=== PATIENT | male | born 1955 | race Caucasian/White ===

== ENCOUNTER 2016-05-31 10:21 | Outpatient (CLI) | payer MEDICARE, OTHER ==
[2015-10-19 12:30] VITALS: BP 128/65
--- NOTE | 2016-05-31 19:13 | Diagnostic Imaging Report ---
Report Submission Date: May 31, 2016 3:17:04 PM CDT Patient ~ Study Name: DAVION ROY) ~ Date: May 31, 2016 10:38:05 AM CDT ~ Modality Type: CR Gender: M ~ Description: CHEST : 53 ~ Institution: [facility] Physician: BETZAIDA FAULKNER ~ ~ ~ ~ HISTORY: ~61-year-old male with left chest wall pain after fall yesterday. COMPARISON: None available. TECHNIQUE: Three views of the left ribs were performed. IMPRESSION: 1. ~No evidence of fracture of the left ribs or clavicle. 2. ~Thoracolumbar dextroscoliosis. 3. ~Left acromioclavicular hypertrophy. 4. ~Surgical clips of the base of the neck suggestive of thyroidectomy. ~ Electronically signed on May 31, 2016 3:17:04 PM CDT by: Filiberto ESCALERA
== END 2016-05-31 10:22 ==
LOC: RAD 10:21
PROVIDERS: ATTEND Family Medicine
DX: R07.81 Pleurodynia (principal)
CPT/HCPCS: 71100

== ENCOUNTER 2016-08-25 20:32 | Emergency (ER) | payer MEDICARE, OTHER ==
[2016-08-25 21:05] VITALS: BP 104/55
--- NOTE | 2016-08-25 21:17 | ED Physician Documentation ---
General Adult - HISTORIAN Historian: patient, friend - [facility] Stated Complaint: bleeding from surgical site Chief Complaint: General Adult Additional Information: persistent bleeding from 1cm shaved biopsy by dermatologists this am Onset: days ago (6) Timing: still present Severity: mild - ROS CONST: no problems (has chronic liver problem w/ lo platelets - no anticoagulants) CVS/RESP: denies: chest pain, shortness of breath, cough GI/: denies: abdominal pain, problems urinating MS/SKIN/LYMPH: none NEURO/PSYCH: denies: headache, fainting, dizziness, difficulty with speech - PAST HX Past History: hypertension, other (ch hep b heavy etoh) Allergies/Adverse Reactions: Allergies Allergy/AdvReac Type Severity Reaction Status Date / Time valproic acid Allergy Severe Nausea/Vomi Unverified 08/25/16 21:05 ting ciprofloxacin [From Cipro] Allergy Intermediate Nausea/stomache Unverified 08/25 21:05 upset ciprofloxacin HCl Allergy Intermediate Nausea/stomache Unverified 08/25/16 21:05 [From Cipro] upset duloxetine Allergy Fatigue Unverified 08/25/16 21:05 aspirin AdvReac Intermediate Causes Verified 08/25/16 21:05 Internal Bleeding Home Medications: Ambulatory Orders Medication Instructions Recorded Cholecalciferol (Vitamin D3) 2,000 unit PO DAILY u2 11/25/14 [Vitamin D-3] Lysine HCl [L-Lysine] 1,000 mg PO DAILY u2 11/25/14 Propranolol HCl 20 mg PO DAILY u2 11/25/14 - SOCIAL HX Smoking History: non-smoker Alcohol Use: heavy (2 beer 1 bottle wine per day) Drug Use: none - FAMILY HX Family History: No - VITAL SIGNS Vital Signs: Vital Signs Temp Pulse Resp BP Pulse Ox 70 16 104/55 97 08/25/16 20:45 08/25/16 20:45 08/25/16 20:45 08/25/16 20:45 - REVIEWED ASSESSMENTS Nursing Assessment Reviewed: Yes Vitals Reviewed: Yes General Adult Physical Exam - PHYSICAL EXAM GENERAL APPEARANCE: mild distress NECK: normal inspection, thyroid normal RESPIRATORY: no resp distress, chest non-tender, breath sounds normal CVS: reg rate & rhythm, heart sounds normal ABDOMEN: soft, non-tender BACK: other (mid dorsal area the aforementioned shave biopsy by dermatologists this am-has bled slightly all day) EXTREMITIES: non-tender, normal range of motion NEURO: oriented X3, motor nml, sensation nml, mood/affect nml Discharge Clincal Impression: bleeding biopsy site mid dorsal area mitra, chronic hep B, ehtanol abuse poss cirrhosis Referrals: Mark Flowers MD [Primary Care Provider] - 2 Days Home Medications: Ambulatory Orders Cholecalciferol (Vitamin D3) [Vitamin D-3] 2,000 unit PO DAILY u2 11/25/14 Lysine HCl [L-Lysine] 1,000 mg PO DAILY u2 11/25/14 Propranolol HCl 20 mg PO DAILY u2 11/25/14 Condition: Good Decision to Admit: NO Decision Time: 21:17
== END 2016-08-25 21:15 | disposition home or self-care (01) ==
LOC: ED 20:32
DX: L76.22 Postprocedural hemorrhage of skin and subcutaneous tissue following other procedure (principal); K73.8 Other chronic hepatitis, not elsewhere classified; F10.10 Alcohol abuse, uncomplicated
CPT/HCPCS: 99283

== ENCOUNTER 2016-09-18 11:33 | Observation (INO) | payer MEDICARE, OTHER ==
[2016-09-18] MEDS ORDERED: ONDANSETRON HCL/PF 4 MG/ 2ML VIAL ONE (11:56)
[2016-09-18] MEDS ORDERED: 0.9 % SODIUM CHLORIDE 1,000 ML IV ONE (11:56)
[2016-09-18] MEDS ORDERED: ONDANSETRON HCL/PF 4 MG/ 2ML VIAL IM ONE (12:00)
[2016-09-18] MEDS ORDERED: 0.9 % SODIUM CHLORIDE 500 ML IV ONE (12:00)
[2016-09-18 12:24] LABS: BASOPHILS % 0.4 (0.0-1.5); MEAN CORPUSCULAR HEMOGLOBIN 34.6 pg (28.0-34.0); MEAN CORPUSCULAR VOLUME 90.4 fl (80.0-100.0); MONOCYTES % 13.3 % (0.0-11.0); NEUTROPHILS # 3.3 # k/uL (1.4-7.7); eGFR (African) > 60; eGFR (Non-African) > 60
[2016-09-18] MEDS ORDERED: POTASSIUM CHLORIDE 20 MEQ TABLET.ER PO ONE (12:52)
--- NOTE | 2016-09-18 12:59 | ED Physician Documentation ---
General Adult - HISTORIAN Historian: patient - HPI Stated Complaint: nausea Chief Complaint: General Adult Additional Information: just dont feel good abd upset nausea emesis diarrhea-normal color Onset: days ago (past 1-2 weeks) Timing: worse Severity: moderate Further Comments: yes (pt anxiety and depression due to partner in hosp at [place]) Last known Well Code/Unknown Code: Known (2-3 weeks or more) - ROS CONST: sweating, recent illness, weakness. denies: fever, weight loss EYES/ENT: denies: problems with vision CVS/RESP: none GI/: abdominal pain, vomiting, nausea, diarrhea (normal brown color ) MS/SKIN/LYMPH: none NEURO/PSYCH: dizziness, anxiety, depression. denies: headache, fainting, difficulty with speech - PAST HX Past History: hypertension ( esophageal varices-bled severly in past-req transfusions peptic ulcer disease djd chronic fatigue syndrome. on disability dt esoph varices) Surgeries/Procedures: other (skin cancer) Allergies/Adverse Reactions: Allergies Allergy/AdvReac Type Severity Reaction Status Date / Time valproic acid Allergy Severe Nausea/Vomi Unverified 09/18/16 11:57 ting ciprofloxacin [From Cipro] Allergy Intermediate Nausea/stomache Unverified 09/18 11:57 upset ciprofloxacin HCl Allergy Intermediate Nausea/stomache Unverified 09/18/16 11:57 [From Cipro] upset duloxetine Allergy Fatigue Unverified 09/18/16 11:57 aspirin AdvReac Intermediate Causes Verified 09/18/16 11:57 Internal Bleeding Home Medications: Ambulatory Orders Medication Instructions Recorded Cholecalciferol (Vitamin D3) 2,000 unit PO DAILY u2 11/25/14 [Vitamin D-3] Lysine HCl [L-Lysine] 1,000 mg PO DAILY u2 11/25/14 Propranolol HCl 20 mg PO DAILY u2 11/25/14 - SOCIAL HX Smoking History: non-smoker Alcohol Use: other (1-2 beer per day) Drug Use: none - FAMILY HX Family History: No - VITAL SIGNS Vital Signs: Vital Signs Temp Pulse Resp BP Pulse Ox 97.9 F 64 20 110/56 97 09/18/16 11:33 09/18/16 11:33 09/18/16 11:33 09/18/16 11:33 09/18/16 11:33 - REVIEWED ASSESSMENTS Nursing Assessment Reviewed: Yes Vitals Reviewed: Yes ED Results Lab/Radiology - Lab Results Lab Results: Lab Results 09/18/16 09/18/16 12:07 12:07 WBC 5.00 K/ul K/ul (4.00-12.00) RBC 3.90 M/ul M/ul (3.90-5.20) Hgb 13.5 g/dL g/dL (12.0-18.0) Hct 35.3 % L % (37.0-53.0) MCV 90.4 fl fl (80.0-100.0) MCH 34.6 pg H pg (28.0-34.0) MCHC 38.3 g/dL H g/dL (30.0-36.0) RDW 14.8 % H % (11.3-14.3) Plt Count 57 K/mm3 L K/mm3 (130-400) Neut % (Auto) 65.2 % % (39.0-79.0) Lymph % (Auto) 17.9 % % (16.0-50.0) Saline % (Auto) 13.3 % H % (0.0-11.0) Eos % (Auto) 2.0 % % (0.0-6.8) Baso % (Auto) 0.4 (0.0-1.5) Neut # (Auto) 3.3 # k/uL # k/uL (1.4-7.7) Lymph # (Auto) 0.9 # k/uL # k/uL (0.6-4.0) Saline # (Auto) 0.7 # k/uL # k/uL (0.0-0.9) Eos # (Auto) 0.1 # k/uL # k/uL (0.0-0.6) Baso # (Auto) 0.0 # k/uL # k/uL (0.0-0.5) Reactive Lymphs % 1.3 % % (0.0-5.0) Reactive Lymphs # 0.1 # k/uL # k/uL (0.0-0.8) Sodium 136 mmol/L mmol/L (136-145) Potassium 2.5 mmol/L L* mmol/L (3.5-5.0) Chloride 93 mmol/L L mmol/L (98-110) Carbon Dioxide 35 mmol/L H mmol/L (20-32) BUN 30 mg/dL H mg/dL (10-26) Creatinine 1.1 mg/dL mg/dL (0.4-1.5) Estimated Creat Clear 111 Est GFR ( Amer) > 60 (60 - ) Est GFR (Non-Af Amer) > 60 (60 - ) Glucose 170 mg/dL H mg/dL (70-99) Calcium 9.6 mg/dL mg/dL (8.5-10.5) Total Bilirubin 3.6 mg/dL H mg/dL (0.2-1.2) AST 47 U/L H U/L (0-41) ALT 24 U/L U/L (0-45) Alkaline Phosphatase 64 U/L U/L (46-116) Total Protein 7.3 g/dL g/dL (6.0-8.5) Albumin 4.0 g/dL g/dL (3.0-5.5) - Orders Orders: ED Orders Category Date Time Status IV Started NOW Care 09/18/16 12:01 Active CBC/PLATELET/DIFF Routine Lab 09/18/16 12:07 Completed CMP Routine Lab 09/18/16 12:07 Completed UA [URINALYSIS] Routine Lab 09/18/16 Ordered 0.9 % Sodium Chloride [Normal Saline] 1,000 ml Med 09/18/16 11:56 Discontinued IV .STK-MED 0.9 % Sodium Chloride [Normal Saline] 500 ml Med 09/18/16 12:00 Discontinued IV NOW Ondansetron HCl/Pf [Zofran 4 mg/2 ml] Med 09/18/16 11:56 Discontinued 4 mg .ROUTE .STK-MED ONE Ondansetron HCl/Pf [Zofran 4 mg/2 ml] Med 09/18/16 12:00 Discontinued 4 mg IM NOW ONE POTASSIUM CHLORIDE/NS @ 125 MLS/HR(1000ml) Med 09/18/16 13:00 Ordered Potassium Chloride 40 Meq/Ns [Potassium 40 Meq/Ns 1000 ml] 1,000 ml IV Q8H Potassium Chloride [Klor-Con M20] Med 09/18/16 12:52 Once 40 meq PO NOW ONE General Adult Physical Exam - PHYSICAL EXAM GENERAL APPEARANCE: moderate distress EENT: eye inspection normal NECK: normal inspection, thyroid normal, supple RESPIRATORY: no resp distress, chest non-tender, breath sounds normal CVS: reg rate & rhythm, heart sounds normal, occasional extrasystoles ABDOMEN: tenderness (slight generalized) BACK: normal inspection, no CVA tenderness, CVA tenderness (R) SKIN: warm/dry, normal color. No: cyanosis, diaphoresis, jaundice EXTREMITIES: non-tender, normal range of motion NEURO: oriented X3, motor nml, sensation nml Discharge Clincal Impression: hypokalemia, weakness nausea emesis diarrhea, dehydration, hyperglycemia Referrals: Mark Flowers MD [Primary Care Provider] - 2 Days Home Medications: Ambulatory Orders Cholecalciferol (Vitamin D3) [Vitamin D-3] 2,000 unit PO DAILY u2 11/25/14 Lysine HCl [L-Lysine] 1,000 mg PO DAILY u2 11/25/14 Propranolol HCl 20 mg PO DAILY u2 11/25/14 Comments: priyanka w/ pt/DR MACK - will admit for care Condition: Fair Disposition: ADMITTED INPATIENT Decision to Admit: [id number] Decision Time: 13:10
[2016-09-18] MEDS: POTASSIUM CHLORIDE 40 MEQ/NS 1,000 ML IV SCH ×2 (13:05→20:51)
[2016-09-18] MEDS ORDERED: POTASSIUM CHLORIDE 40 MEQ/20ML VIAL IV ONE (13:22)
[2016-09-18] MEDS ORDERED: SALINE FLUSH 10 ML DISP.SYRIN IVF ONE (13:43)
[2016-09-18] MEDS ORDERED: IPRATROPIUM BROMIDE NS SCH (14:28)
[2016-09-18] MEDS ORDERED: METOLAZONE 5 MG PO SCH (14:28)
[2016-09-18] MEDS ORDERED: DICYCLOMINE HCL 20 MG TABLET PO ONE ×2 (15:50→16:49)
[2016-09-18] MEDS: DICYCLOMINE HCL 10 MG PO SCH ×2 (15:59→19:25)
[2016-09-18] MEDS: POTASSIUM CHLORIDE 20 MEQ TABLET.ER PO SCH ×2 (16:00→19:26)
[2016-09-18] MEDS: PROPRANOLOL HCL 20 MG TABLET PO SCH (16:00)
[2016-09-18] MEDS: FINASTERIDE 5 MG TABLET PO SCH (16:01)
[2016-09-18 16:16] VITALS: BMI 35.1
[2016-09-18] MEDS: FUROSEMIDE 40 MG TABLET PO SCH (19:26)
[2016-09-18] MEDS: CHOLESTYRAMINE (WITH SUGAR) 4 GM PACKET PO SCH (20:50)
--- NOTE | 2016-09-18 20:58 | History and Physical Report ---
History of Present Illnes - History of Present Illness Reason for Visit: generalized weakness History of Present Illness: 61-year-old white male who comes in complaining of several problems. Patient had a month history of intermittent diarrhea. 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 Patient denies any hematachezia, melena or hematemesis. Patient has been having some cramping and nausea for approximately two weeks. Again the seem to be precipitated by stress. Patient is not had any hematemesis. On the morning of admission patient got up felt week was having a lot of muscle cramps and subsequently came to the ED for evaluation. In the ED patient was noted to be markedly hypokalemic. Patient was subsequently admitted to the hospital for further evaluation. There is some question about whether the patient was go to be able to keep potassium tablets down related to his nausea and vomiting. Over the last two month patient has been trying to eat healthy. However patient has been under a lot of stress related to relationship issues. Patient has felt hot does not had any fever that he is aware of. Did have some chills this morning. Patient stated he did have an endoscopy two month ago for recheck of esophageal varicosels. These were felt to be normal. - Past Medical History Cardiac: HTN Gastrointestinal: Other (esphageal varicoceles, hepatitis B with mild cirrhosis) Musculoskeletal: Osteoarthritis - Past Surgical History Past Surgical History: Other (excision of melenoma, parathyriodectomy) - Past Social History Smoke: No Alcohol: Rare Lives: Roommate Domestic Violence: Negative - Health Maintenance Health Maintenance: Cholesterol, Pneumococcal Vaccine Influenza Vaccine: Current for this Influenza Season Pneumonia Vaccine: Yes Resuscitation Status: Resusciation Status Resuscitation Status Full Code - Unable to Obtain History Unable to Obtain: No Review of Systems - Review of Systems Constitutional: Chills, Weakness. negative: Fever, Sweats Eyes: negative: pain, vision change, conjunctivae inflammation ENT: negative: Nose Pain, Nose Discharge, Nose Congestion Respiratory: negative: Cough, Shortness of Breath, Hemoptysis, Sputum, Wheezing Cardiovascular: Light Headedness. negative: Chest Pain, Palpitations, Orthopnea Gastrointestinal: Nausea, Vomiting, Abdominal Pain (cramping), Diarrhea. negative: Constipation, Melena, Hematochezia Genitourinary: negative: Dysuria, Frequency, Incontinence Musculoskeletal: Leg Pain. negative: Neck Pain Skin: negative: Rash Neurological: Weakness. negative: Numbness, Incoordination, Confusion - Medications/Allergies Allergies/Adverse Reactions: Allergies Allergy/AdvReac Type Severity Reaction Status Date / Time valproic acid Allergy Severe Nausea/Vomi Verified 09/18/16 14:04 ting ciprofloxacin [From Cipro] Allergy Intermediate Nausea/stomache Verified 14:04 upset ciprofloxacin HCl Allergy Intermediate Nausea/stomache Verified 09/18/16 14:04 [From Cipro] upset duloxetine Allergy Fatigue Verified 09/18/16 14:04 aspirin AdvReac Intermediate Causes Verified 09/18/16 11:57 Internal Bleeding Home Medications: Home Medications Amitriptyline HCl [Elavil] 10 mg PO HS PRN 09/18/16 Current Inpatient Medications: Current Inpatient Medications Cholecalciferol (Vitamin D-3) 2,000 unit PO DAILY [facility] Cholestyramine Resin (Questran) 4 gm PO BID [facility] Last Admin: 09/18/16 20:50 Dose: 4 gm Dicyclomine HCl (Bentyl) 10 mg PO Q6 [facility] Finasteride (Proscar) 5 mg PO DAILY [facility] Last Admin: 09/18/16 16:01 Dose: 5 mg Fluticasone Propionate (Flonase Nasal [place]) spray NS DAILY [facility] Furosemide (Lasix) 40 mg PO TID [facility] Last Admin: 09/18/16 19:26 Dose: 40 mg Potassium Chloride/Sodium Chloride (Potassium 40 Meq/Ns 1000 Ml) 1,000 mls @ 125 mls/hr IV Q8H [facility] Last Admin: 09/18/16 20:51 Dose: 125 mls/hr Metolazone (Zaroxolyn) 5 mg PO DAILY [facility] Potassium Chloride (Klor-Con M20) 20 meq PO TID [facility] Last Admin: 09/18/16 19:26 Dose: 20 meq Propranolol HCl (Inderal) 20 mg PO DAILY [facility] Last Admin: 09/18/16 16:00 Dose: 20 mg Venlafaxine HCl (Effexor Xr) 150 mg PO DAILY [facility] Exam - Exam Vital Signs: Vital Signs (72 hours) 09/18/16 09/18/16 09/18/16 13:47 13:50 14:28 Temperature 98.6 F Pulse Rate 60 Pulse Rate [ 53 L 53 L Pulse ox] Respiratory 20 20 Rate Blood Pressure 113/62 113/62 [Left Arm] O2 Sat by Pulse 95 95 Oximetry 09/18/16 09/18/16 09/18/16 15:28 16:28 17:00 Temperature Pulse Rate 69 62 59 L Pulse Rate [ Pulse ox] Respiratory Rate Blood Pressure [Left Arm] O2 Sat by Pulse Oximetry 09/18/16 09/18/16 17:47 18:00 Temperature 98.5 F Pulse Rate 61 Pulse Rate [ 60 Pulse ox] Respiratory 18 Rate Blood Pressure 108/59 [Left Arm] O2 Sat by Pulse 95 Oximetry General: Alert, Oriented to Person, Oriented to Place, Oriented to Time, Cooperative, No acute distress HEENT: Atraumatic, Mouth Mucous membr. moist/[place], Nose Mucous membr. moist/[place] Neck: Stridor Carotids: WNL Thyroid: WNL Lungs: Clear to auscultation. No: Wheezes, Rales, Rhonchi Cardiovascular: Regular rate, Normal S1, Normal S2, No murmurs Abdomen: Normal bowel sounds, Soft, No tenderness, No masses Integumentary: Normal, [place], Warm, Dry Extremities: No clubbing, No cyanosis, Other (trace edema) Neurological: Normal gait, Normal speech, Strength Equal Bilat, Normal tone, Sensation intact, Cranial nerves 3-12 NL Psych/Mental Status: Mental status NL, Mood NL, Intact Judgment Assessment/Plan - Assessment/Plan (1) Hypokalemia Status: Acute Assessment: Will start IV potassium and monitor (2) Hypertension Status: Chronic Comment: continue home meds (3) Osteoarthritis Status: Chronic (4) Cirrhosis Status: Chronic Assessment: stable (5) History of hepatitis B Status: Chronic VTE Assessment - RISK FACTOR SCORE VTE RISK FACTOR SCORES: AGE OVER 60 YEARS, ANTICIPATED BED CONFINEMENT OR IMMOBILIZATION > 24 HOURS - RISK VTE MODERATE RISK: SCORE OF 2 (RISK PROXIMAL DVT 2-4%) PROPHYAXIS NEEDED
[2016-09-18] MEDS ORDERED: ENOXAPARIN SODIUM 30 MG/0.3 ML DISP.SYRIN SQ SCH (22:00)
[2016-09-19] MEDS ORDERED: METOLAZONE 2.5 MG TABLET PO ONE (02:53)
[2016-09-19] MEDS: DICYCLOMINE HCL 20 MG TABLET PO SCH ×4 (04:36→18:27)
[2016-09-19] MEDS: POTASSIUM CHLORIDE 40 MEQ/NS 1,000 ML IV SCH ×3 (04:36→23:06)
[2016-09-19 05:35] LABS: APPEARANCE,URINE CLEAR (CLEAR); COLOR,URINE YELLOW (YELLOW); OCCULT BLOOD,URINE NEGATIVE (NEGATIVE); PH URINE 7.5 (5.0 - 8.0)
[2016-09-19 06:33] LABS: eGFR (African) > 60; eGFR (Non-African) > 60
[2016-09-19] MEDS ORDERED: METOLAZONE 2.5 MG TABLET PO SCH ×2 (08:00→09:00)
[2016-09-19] MEDS: METOLAZONE 2.5 MG TABLET PO SCH (08:56)
[2016-09-19] MEDS: VENLAFAXINE HCL 37.5 MG CAP.ER.24H PO SCH (08:56)
[2016-09-19] MEDS: FUROSEMIDE 40 MG TABLET PO SCH ×3 (08:57→18:27)
[2016-09-19] MEDS: PROPRANOLOL HCL 20 MG TABLET PO SCH (08:57)
[2016-09-19] MEDS: POTASSIUM CHLORIDE 20 MEQ TABLET.ER PO SCH ×3 (08:57→18:27)
[2016-09-19] MEDS: ENOXAPARIN SODIUM 30 MG/0.3 ML DISP.SYRIN SQ SCH (08:57)
[2016-09-19] MEDS: CHOLESTYRAMINE (WITH SUGAR) 4 GM PACKET PO SCH ×2 (08:58→19:49)
[2016-09-19] MEDS: CHOLECALCIFEROL (VIT D3) 1,000 UNIT TABLET PO SCH (08:58)
[2016-09-19] MEDS: FINASTERIDE 5 MG TABLET PO SCH (08:58)
[2016-09-19] MEDS ORDERED: CHOLECALCIFEROL 2000 UNIT PO SCH (09:00)
[2016-09-19] MEDS ORDERED: LYSINE HCL 1000 MG PO SCH (09:00)
[2016-09-19] MEDS ORDERED: MELOXICAM 7.5 MG PO SCH (09:00)
[2016-09-19] MEDS ORDERED: VENLAFAXINE HCL 150 MG PO SCH (09:00)
[2016-09-19] MEDS: FLUTICASONE PROPIONATE 120 SPRAY/16 GR BOTTLE NS SCH (11:09)
--- NOTE | 2016-09-19 15:03 | Diagnostic Imaging Report ---
[facility]MED SURG [facility] [id number] [facility] [address] [place] [address]. [id number] Report Submission Date: Sep 19, 2016 2:55:52 PM CDT Patient Study Name: DAVION ROY) Date: Sep 19, 2016 1:55:28 PM CDT Modality Type: US Gender: M Description: US ABD LIMITED : 51 Institution: [facility] Physician: [facility]/MED SURG Examination: Ultrasound gallbladder History: Epigastric discomfort Findings: Sonographic evaluation of the right upper quadrant demonstrates the gallbladder with thickened wall measuring 4.6 mm. No identifiable stone centrally. Common bile duct was not identified. Liver demonstrates coarse echogenicity. Doppler waveforms centrally appear to be without gross abnormality. Kidney measures 11.3 centers in length. Echogenic renal pyramids. No mass or hydronephrosis. Impression: Ultrasound findings suggestive for hepatic cirrhosis. Small/contracted gallbladder with thickened wall. No identified gallstone. Unable to visualize common bile duct. May be related to hepatic cirrhosis. Echogenic renal pyramids: Correlate with any underlying renal pathology. Electronically signed on Sep 19, 2016 2:55:52 PM CDT by: Percy ESCALERA
[2016-09-20] MEDS: DICYCLOMINE HCL 20 MG TABLET PO SCH ×3 (05:35→12:21)
[2016-09-20 06:14] LABS: eGFR (African) > 60; eGFR (Non-African) > 60
[2016-09-20] MEDS: FLUTICASONE PROPIONATE 120 SPRAY/16 GR BOTTLE NS SCH (09:50)
[2016-09-20] MEDS: METOLAZONE 2.5 MG TABLET PO SCH (09:51)
[2016-09-20] MEDS: CHOLECALCIFEROL (VIT D3) 1,000 UNIT TABLET PO SCH (09:52)
[2016-09-20] MEDS: VENLAFAXINE HCL 37.5 MG CAP.ER.24H PO SCH (09:52)
[2016-09-20] MEDS: FINASTERIDE 5 MG TABLET PO SCH (09:52)
[2016-09-20] MEDS: ENOXAPARIN SODIUM 30 MG/0.3 ML DISP.SYRIN SQ SCH (09:52)
[2016-09-20] MEDS: POTASSIUM CHLORIDE 20 MEQ TABLET.ER PO SCH ×2 (09:52→12:21)
[2016-09-20] MEDS: CHOLESTYRAMINE (WITH SUGAR) 4 GM PACKET PO SCH (09:52)
[2016-09-20] MEDS: PROPRANOLOL HCL 20 MG TABLET PO SCH (09:53)
[2016-09-20] MEDS: FUROSEMIDE 40 MG TABLET PO SCH ×2 (09:53→12:21)
[2016-09-20 10:37] VITALS: BP 100/48
[2016-09-20] MEDS ORDERED: ONDANSETRON HCL 4 MG TAB.RAPDIS PO PRN (12:09)
[2016-09-20] MEDS: POTASSIUM CHLORIDE 40 MEQ/NS 1,000 ML IV SCH (14:40)
--- NOTE | 2016-09-22 10:01 | Inpatient Progress Note ---
Date Seen: September 19, 2016 S: Christian is still very weak this morning. His potassium has come up a little bit to 2.9. He is currently on IV fluids. The plan is for him to have an ultrasound of the abdomen this afternoon. O: Vital Signs: His vital signs show him to have a temperature of 97.6, pulse of 57, blood pressure of 137/68, pulse oximetry is 94% on room air. General: This is an obese 61-year-old male. HEENT: Shows his head to be normocephalic and atraumatic. His mucous membranes are moist. Neck: No JVD is noted. Lungs: Clear. Heart: Regular. Abdomen: Soft. Organomegaly is appreciated. Very diffuse minimal abdominal tenderness is noted. Extremities: Shows 2+ to 3+ edema, which is about baseline for him. A: 1. Hypokalemia. 2. Chronic hepatic cirrhosis secondary to alcohol abuse, as well as hepatitis B. 3. Hypertension. 4. Osteoarthritis. 5. History of hepatitis B. P: Again, proceed with an ultrasound this afternoon. Hopefully, we will be able to discharge him in the morning. LALI
--- NOTE | 2016-09-22 10:12 | Discharge Summary ---
ADMISSION DATE: September 18, 2016 DATE OF DISCHARGE: September 20, 2016 DIAGNOSES ON THIS HOSPITALIZATION: 1. Hypokalemia. 2. Diarrhea. 3. Depression. 4. Chronic cirrhosis secondary to hepatitis B and alcohol abuse. 5. Chronic alcoholism. SUMMARIZATION OF ADMISSION HISTORY AND PHYSICAL: This is a 61-year-old male who presented with increasing weakness over the last few days. He had quite a bit of diarrhea on the days before his admission. He was noted to be markedly hypokalemic on admission and was admitted for correction of this, as well as IV rehydration secondary to dehydration from his diarrhea. HOSPITAL COURSE: He was admitted. IV rehydration was performed using normal saline with 40 mEq of potassium. This was run at 125 mL per hour. He tolerated this very well. He did not have any evidence of any fluid overload. An abdominal ultrasound was performed and it did show him to have chronic cirrhosis. No other significant abnormalities were noted. He was much better the next morning. His potassium was still a little bit low at 3.2. The diarrhea had essentially stopped. He was discharged to home with continuation of all of his home medications. I did continue him on some Zofran for some intermittent nausea that he had experienced. CONDITION ON DISCHARGE: He was discharged to home in improved condition. DISCHARGE INSTRUCTIONS: I will see him next week. We will check his electrolytes again when I see him in the office next week. LALI
--- NOTE | 2016-11-01 09:44 | Discharge Summary ---
Discharge Summary - Discharge Sumary History of Present Illness: 61-year-old white male who comes in complaining of several problems. Patient had a month history of intermittent diarrhea. 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 Patient denies any hematachezia, melena or hematemesis. Patient has been having some cramping and nausea for approximately two weeks. Again the seem to be precipitated by stress. Patient is not had any hematemesis. On the morning of admission patient got up felt week was having a lot of muscle cramps and subsequently came to the ED for evaluation. In the ED patient was noted to be markedly hypokalemic. Patient was subsequently admitted to the hospital for further evaluation. There is some question about whether the patient was go to be able to keep potassium tablets down related to his nausea and vomiting. Over the last two month patient has been trying to eat healthy. However patient has been under a lot of stress related to relationship issues. Patient has felt hot does not had any fever that he is aware of. Did have some chills this morning. Patient stated he did have an endoscopy two month ago for recheck of esophageal varicosels. These were felt to be normal. Condition at Discharge: Stable Home Medications: Ambulatory Orders Medication Instructions Recorded Cholecalciferol (Vitamin D3) 5,000 unit PO DAILY u2 11/25/14 [Vitamin D-3] Lysine HCl [L-Lysine] 1,000 mg PO DAILY u2 11/25/14 Propranolol HCl 20 mg PO DAILY u2 11/25/14 Amitriptyline HCl [Elavil] 10 mg PO HS PRN 09/18/16 Consultations this Visit: None Procedures this Visit: None Allergies/Adverse Reactions: Allergies Allergy/AdvReac Type Severity Reaction Status Date / Time valproic acid Allergy Severe Nausea/Vomi Verified 09/18/16 14:04 ting ciprofloxacin [From Cipro] Allergy Intermediate Nausea/stomache Verified 14:04 upset ciprofloxacin HCl Allergy Intermediate Nausea/stomache Verified 09/18/16 14:04 [From Cipro] upset duloxetine Allergy Fatigue Verified 09/18/16 14:04 aspirin AdvReac Intermediate Causes Verified 09/18/16 11:57 Internal Bleeding Discharge Summary: Patient was found emergency room to be markedly hyperkalemic with a potassium of 2.5. It was felt that the patient potassium was low because of his repeated nausea vomiting. Patient was started on IV supplemental potassium and then PO potassium. At the time of discharge patient potassium have improved to 3.2. During the hospital stay patient was noted to be hyperglycemic with a fasting blood sugar hundred and 118 and 104. Patient was advised that he may be early diabetic. Patient blood pressure remains stable during the hospitalization.Patient did have an elevated total bilirubin of 3.6 on admission. Patient has had a history of cirrhosis of the liver related to hepatitis B. At the time of discharge total bilirubin was 2.2.Patient was subsequently discharged patient in stable condition.
--- NOTE | 2016-11-01 09:51 | Inpatient Progress Note ---
Subjective - Required Recertification Statement I anticipate X number of days because-include discharge plan: 1 day - Review of Systems Subjective: Patient seem to be doing better today. Patient is not had any further nausea vomiting. Patient is able to take oral medications at this time. Patient's potassium has improved to 2.9. Patient continues to have an elevated fasting blood sugar of 118. Patient muscle cramps seem to be improved. Objective - Exam Vitals and I&O: Vital Signs Temp 98.2 F 09/20/16 13:28 Pulse 62 09/20/16 14:00 Resp 18 09/20/16 13:28 BP 100/48 09/20/16 13:28 Pulse Ox 96 09/20/16 13:28 General: Alert, Oriented to Person, Oriented to Place, Oriented to Time, Cooperative Neck: Supple Lungs: Clear to auscultation, Normal air movement, Speaks full Sentences. No: Wheezes, Rales, Rhonchi Cardiovascular: Regular rate, Normal S1, Normal S2, No murmurs Abdomen: Normal bowel sounds, Soft, No tenderness Skin: Normal, [place], Warm Psych/Mental Status: Mental status NL, Mood NL, Appropriate Affect - Results Results: Laboratory Results WBC 5.00 K/ul (4.00-12.00) 09/18/16 12:07 RBC 3.90 M/ul (3.90-5.20) 09/18/16 12:07 Hgb 13.5 g/dL (12.0-18.0) 09/18/16 12:07 Hct 35.3 % (37.0-53.0) L 09/18/16 12:07 MCV 90.4 fl (80.0-100.0) 09/18/16 12:07 MCH 34.6 pg (28.0-34.0) H 09/18/16 12:07 MCHC 38.3 g/dL (30.0-36.0) H 09/18/16 12:07 RDW 14.8 % (11.3-14.3) H 09/18/16 12:07 Plt Count 57 K/mm3 (130-400) L 09/18/16 12:07 Neut % (Auto) 65.2 % (39.0-79.0) 09/18/16 12:07 Lymph % (Auto) 17.9 % (16.0-50.0) 09/18/16 12:07 [place] % (Auto) 13.3 % (0.0-11.0) H 09/18/16 12:07 Eos % (Auto) 2.0 % (0.0-6.8) 09/18/16 12:07 Baso % (Auto) 0.4 (0.0-1.5) 09/18/16 12:07 Neut # (Auto) 3.3 # k/uL (1.4-7.7) 09/18/16 12:07 Lymph # (Auto) 0.9 # k/uL (0.6-4.0) 09/18/16 12:07 [place] # (Auto) 0.7 # k/uL (0.0-0.9) 09/18/16 12:07 Eos # (Auto) 0.1 # k/uL (0.0-0.6) 09/18/16 12:07 Baso # (Auto) 0.0 # k/uL (0.0-0.5) 09/18/16 12:07 Reactive Lymphs % 1.3 % (0.0-5.0) 09/18/16 12:07 Reactive Lymphs # 0.1 # k/uL (0.0-0.8) 09/18/16 12:07 PT 16.3 Seconds (9.4-11.6) H 09/18/16 23:27 INR 1.54 (0.9-1.2) H 09/18/16 23:27 Sodium 138 mmol/L (136-145) 09/20/16 05:45 Potassium 3.2 mmol/L (3.5-5.0) L 09/20/16 05:45 Chloride 101 mmol/L (98-110) 09/20/16 05:45 Carbon Dioxide 34 mmol/L (20-32) H 09/20/16 05:45 BUN 15 mg/dL (10-26) 09/20/16 05:45 Creatinine 0.7 mg/dL (0.4-1.5) 09/20/16 05:45 Estimated Creat Clear 174 09/20/16 05:45 Est GFR ( Amer) > 60 (60-) 09/20/16 05:45 Est GFR (Non-Af Amer) > 60 (60-) 09/20/16 05:45 Glucose 104 mg/dL (70-99) H 09/20/16 05:45 Estimat Average Glucose 71 mg/dL 09/18/16 11:55 Hemoglobin A1c 4.1 % (4.0-5.6) 09/18/16 11:55 Calcium 8.4 mg/dL (8.5-10.5) L 09/20/16 05:45 Total Bilirubin 2.2 mg/dL (0.2-1.2) H 09/20/16 05:45 AST 42 U/L (0-41) H 09/20/16 05:45 ALT 17 U/L (0-45) 09/20/16 05:45 Alkaline Phosphatase 49 U/L (46-116) 09/20/16 05:45 Total Protein 5.7 g/dL (6.0-8.5) L 09/20/16 05:45 Albumin 3.3 g/dL (3.0-5.5) 09/20/16 05:45 Urine Color Yellow (YELLOW) 09/18/16 12:06 Urine Appearance Clear (CLEAR) 09/18/16 12:06 Urine pH 7.5 (5.0 - 8.0) 09/18/16 12:06 Ur Specific [place] 1.015 (1.010-1.030) 09/18/16 12:06 Urine Protein Negative mg/dL (NEGATIVE) 09/18/16 12:06 Urine Ketones Negative mg/dL (NEGATIVE) 09/18/16 12:06 Urine Occult Blood Negative (NEGATIVE) 09/18/16 12:06 Urine Nitrite Negative (NEGATIVE) 09/18/16 12:06 Urine Bilirubin Negative (NEGATIVE) 09/18/16 12:06 Urine Urobilinogen 4.0 Eu (0.2-1.0) H 09/18/16 12:06 Ur Leukocyte Esterase Negative (NEGATIVE) 09/18/16 12:06 Urine Glucose Negative mg/dL (NEGATIVE) 09/18/16 12:06 Assessment/Plan - Assessment/Plan (1) Hypokalemia Status: Acute Assessment: improved, will continue with IV K to try to get it up some more before discharge (2) Hypertension Status: Chronic Assessment: has been stable to slightly low. (3) Osteoarthritis Status: Chronic Assessment: continue with home meds (4) Cirrhosis Status: Chronic Assessment: stable
== END 2016-09-20 15:40 | disposition home or self-care (01) ==
LOC: ED 11:33 → SOUTH 13:27 → INTOOBSV 13:27 → SOUTH 14:02
PROVIDERS: ADMIT Family Medicine; ATTEND Family Medicine
DX: E87.6 Hypokalemia (principal); R19.7 Diarrhea, unspecified; F32.9 Major depressive disorder, single episode, unspecified; F10.20 Alcohol dependence, uncomplicated; K70.31 Alcoholic cirrhosis of liver with ascites
CPT/HCPCS: 36415; 76705; 80048; 80053; 81002; 83036; 85025; 85610; 99284; A9270; G0379; J1650; J2405; J3480; J7030; J7060; 99222; 99238; G0378; S1016

== ENCOUNTER 2016-09-26 15:22 | Outpatient (CLI) | payer MEDICARE, OTHER ==
[2016-09-26 16:07] LABS: eGFR (African) > 60; eGFR (Non-African) > 60
== END 2016-09-26 15:23 ==
LOC: LAB 15:22
PROVIDERS: ATTEND Family Medicine
DX: Z51.81 Encounter for therapeutic drug level monitoring (principal)
CPT/HCPCS: 36415; 80048

== ENCOUNTER 2016-10-04 10:39 | Outpatient (CLI) | payer MEDICARE, OTHER ==
[2016-10-04 11:33] LABS: eGFR (African) > 60; eGFR (Non-African) > 60
== END 2016-10-04 13:57 ==
LOC: LAB 10:39
PROVIDERS: ATTEND Family Medicine
DX: E87.6 Hypokalemia (principal)
CPT/HCPCS: 36415; 80048

== ENCOUNTER 2016-11-11 18:55 | Observation (INO) | payer MEDICARE, OTHER ==
[2016-11-11] MEDS ORDERED: 0.9 % SODIUM CHLORIDE 1,000 ML IV ONE (20:01)
[2016-11-11 20:14] LABS: BASOPHILS % 0.6 (0.0-1.5); EOSINOPHILS % 2.6 % (0.0-6.8); MEAN CORPUSCULAR HEMOGLOBIN 33.5 pg (28.0-34.0); MEAN CORPUSCULAR VOLUME 89.4 fl (80.0-100.0); MONOCYTES % 13.3 % (0.0-11.0); NEUTROPHILS # 2.6 # k/uL (1.4-7.7)
[2016-11-11 20:29] LABS: eGFR (African) > 60; eGFR (Non-African) > 60
[2016-11-11] MEDS ORDERED: 0.9 % SODIUM CHLORIDE 1,000 ML IV SCH (20:30)
[2016-11-11] MEDS ORDERED: POTASSIUM CHLORIDE 20 MEQ TABLET.ER PO ONE (20:38)
[2016-11-12] MEDS ORDERED: 0.9 % SODIUM CHLORIDE 1,000 ML IV SCH (00:49)
[2016-11-12] MEDS ORDERED: CHOLECALCIFEROL 1,000 UNIT TABLET PO ONE (00:49)
[2016-11-12] MEDS ORDERED: AMITRIPTYLINE HCL 25 MG TABLET PO PRN (00:49)
[2016-11-12] MEDS ORDERED: ONDANSETRON HCL 4 MG TAB.RAPDIS PO PRN (01:00)
[2016-11-12] MEDS ORDERED: CELECOXIB 100 MG CAPSULE PO SCH (01:00)
[2016-11-12] MEDS ORDERED: SALINE FLUSH 10 ML DISP.SYRIN IVF ONE ×2 (01:03→20:28)
[2016-11-12] MEDS ORDERED: 0.9 % SODIUM CHLORIDE 1,000 ML IV ONE (01:03)
[2016-11-12] MEDS ORDERED: CELECOXIB 100 MG CAPSULE ONE ×3 (01:08→03:55)
[2016-11-12] MEDS: FUROSEMIDE 40 MG/4 ML VIAL IVP SCH ×3 (01:15→20:31)
[2016-11-12 02:01] VITALS: BMI 30.3
--- NOTE | 2016-11-12 04:42 | ED Physician Documentation ---
Dizziness - HISTORIAN Historian: patient - HPI Stated Complaint: dizzy, weak, no appetite Chief Complaint: Dizziness Additional Information: in etoh program, dizzy and weak since admission Timing: sudden onset Duration: constant Last known Well Date: 11/04/16 Last Known Well Time: 00:00 Last known Well Code/Unknown Code: Unknown Severity: mild Associated Symptoms: vestibular, weakness Decreased Ability to Stand/ Walk: walks w/o assistance Usually: walks w/o assistance Worsened By: changing position Further Comments: no - ROS CONST: other (dizziness, weakness) EYES/ENT: none GI/: none LNMP: other MS/SKIN/LYMPH: none NEURO/PSYCH: none CVS/RESP: none - PAST HX Past History: hypertension, other (ca, depression) Cardiac Disease: other (htn) Surgeries/Procedures: other (ortho, t and a) Immunizations: referred to PCP Allergies/Adverse Reactions: Allergies Allergy/AdvReac Type Severity Reaction Status Date / Time valproic acid Allergy Severe Nausea/Vomi Verified 11/11/16 21:50 ting ciprofloxacin [From Cipro] Allergy Intermediate Nausea/stomache Verified 21:20 upset ciprofloxacin HCl Allergy Intermediate Nausea/stomache Verified 11/11/16 21:20 [From Cipro] upset duloxetine Allergy Fatigue Verified 11/11/16 21:20 hydrocodone Allergy Itchy Skin Verified 11/11/16 21:20 aspirin AdvReac Intermediate Causes Verified 11/11/16 21:20 Internal Bleeding Home Medications: Ambulatory Orders Medication Instructions Recorded Cholecalciferol (Vitamin D3) 5,000 unit PO DAILY u2 11/25/14 [Vitamin D-3] Lysine HCl [L-Lysine] 1,000 mg PO DAILY u2 11/25/14 Propranolol HCl 20 mg PO DAILY u2 11/25/14 Amitriptyline HCl [Elavil] 10 mg PO HS PRN 09/18/16 - SOCIAL HX Smoking History: cigarettes Alcohol Use: heavy Drug Use: none - FAMILY HX Family History: none - VITAL SIGNS Vital Signs: Vital Signs Temp Pulse Resp BP Pulse Ox 97.3 F L 62 20 116/79 94 11/12/16 01:52 11/12/16 02:12 11/12/16 01:52 11/12/16 01:52 11/12/16 01:52 - REVIEWED ASSESSMENTS Nursing Assessment Reviewed: Yes Vitals Reviewed: Yes Progress - Results/Orders Results/Orders: cbc, cmp, ua, uds, etoh, aas ordered in er - Progress Progress: pt. given 1 liter ns iv and 40 meq kcl p.o. in er Critical Care Note - Critical Care Note Total Time (mins): 0 ED Results Lab/Radiology - Lab Results Lab Results: Lab Results 11/11/16 11/11/16 20:08 20:06 WBC 4.40 K/ul K/ul (4.00-12.00) RBC 3.81 M/ul L M/ul (3.90-5.20) Hgb 12.8 g/dL g/dL (12.0-18.0) Hct 34.1 % L % (37.0-53.0) MCV 89.4 fl fl (80.0-100.0) MCH 33.5 pg pg (28.0-34.0) MCHC 37.5 g/dL H g/dL (30.0-36.0) RDW 14.3 % % (11.3-14.3) Plt Count 61 K/mm3 L K/mm3 (130-400) Neut % (Auto) 57.4 % % (39.0-79.0) Lymph % (Auto) 24.8 % % (16.0-50.0) [place] % (Auto) 13.3 % H % (0.0-11.0) Eos % (Auto) 2.6 % % (0.0-6.8) Baso % (Auto) 0.6 (0.0-1.5) Neut # (Auto) 2.6 # k/uL # k/uL (1.4-7.7) Lymph # (Auto) 1.1 # k/uL # k/uL (0.6-4.0) [place] # (Auto) 0.6 # k/uL # k/uL (0.0-0.9) Eos # (Auto) 0.1 # k/uL # k/uL (0.0-0.6) Baso # (Auto) 0.0 # k/uL # k/uL (0.0-0.5) Reactive Lymphs % 1.2 % % (0.0-5.0) Reactive Lymphs # 0.0 # k/uL # k/uL (0.0-0.8) Sodium 135 mmol/L L mmol/L (137-145) Potassium 2.6 mmol/L L mmol/L (3.5-5.1) Chloride 91 mmol/L L mmol/L (98-107) Carbon Dioxide 35 mmol/L H mmol/L (22-30) BUN 35 mg/dL H mg/dL (9-20) Creatinine 1.10 mg/dL mg/dL (0.66-1.25) Estimated Creat Clear 107 Est GFR ( Amer) > 60 (60 - ) Est GFR (Non-Af Amer) > 60 (60 - ) Glucose 98 mg/dL mg/dL (74-106) Calcium 9.5 mg/dL mg/dL (8.4-10.2) Total Bilirubin 2.1 mg/dL H mg/dL (0.2-1.3) AST 41 U/L U/L (15-46) ALT 37 U/L U/L (13-69) Alkaline Phosphatase 60 U/L U/L (38-126) Total Protein 6.8 g/dL g/dL (6.3-8.2) Albumin 3.5 g/dL g/dL (3.5-5.0) Ethyl Alcohol < 10.0 mg/dL mg/dL (0.0-10.0) - Radiology Radiology Impressions: aas shows no pulmonary issues but constipation - Orders Orders: ED Orders Category Date Time Status Activity as ordered D Care 11/12/16 00:49 Active Assess pulse oximetry Q2 Care 11/12/16 00:49 Active Continuous EKG monitoring Q1 Care 11/12/16 00:49 Active Document Bowel Movement Q8H Care 11/12/16 00:[address] Flowers NOW Care 11/12/16 00:49 Ordered No VTE Prophylaxis Needed .Once Care 11/12/16 00:49 Active Observation-Telemetry NOW Care 11/12/16 00:49 Ordered Orthostatics 1T Care 11/11/16 20:[address] IV Lock 1T Care 11/11/16 20:01 Completed Vital Signs Q4 Care 11/12/16 00:49 Active No Added Salt Diet 11/12/16 Breakfast Ordered Regular Diet 11/12/16 Breakfast Ordered AAS [ABD SERIES PA CHEST] [RAD] Stat Exams 11/11/16 Ordered ALCOHOL MEDICAL USE ONLY Routine Lab 11/11/16 20:06 Completed BMP Routine Lab 11/12/16 14:00 Ordered CBC/PLATELET/DIFF Routine Lab 11/11/16 20:08 Completed CBC/PLATELET/DIFF Routine Lab 11/12/16 14:00 Ordered CMP Routine Lab 11/11/16 20:06 Completed DRUG SCREEN URINE MEDICAL ONLY Routine Lab 11/11/16 Ordered URINALYSIS Routine Lab 11/11/16 20:01 Ordered 0.9 % Sodium Chloride [Normal Saline] 1,000 ml Med 11/11/16 20:30 Discontinued IV .Q1H 0.9 % Sodium Chloride [Normal Saline] 1,000 ml Med 11/11/16 20:01 Discontinued IV .STK-MED 0.9 % Sodium Chloride [Normal Saline] 1,000 ml Med 11/12/16 00:49 Ordered IV Q10H Amitriptyline HCl [Elavil] Med 11/12/16 00:49 Ordered 10 mg PO HS PRN Celecoxib [Celebrex] Med 11/12/16 01:00 Ordered 200 mg PO DAILY Cholecalciferol [Vitamin D-3] Med 11/12/16 00:49 Once 5,000 unit PO NOW ONE Entecavir [Entecavir] Med 11/12/16 09:00 Ordered 1 mg PO DAILY Finasteride [Proscar] Med 11/12/16 09:00 Ordered 5 mg PO DAILY Furosemide [Lasix] Med 11/12/16 01:00 Ordered 40 mg IVP Q12 Montelukast Sodium [Singulair] Med 11/12/16 09:00 Ordered 10 mg PO DAILY Ondansetron HCl Rapdis [Zofran Odt] Med 11/12/16 01:00 Ordered 4 mg PO q6h prn nausea Potassium Chloride [Klor-Con 20 Meq/10Ml] Med 11/12/16 09:00 Ordered 20 meq IV DAILY Potassium Chloride [Klor-Con M20] Med 11/11/16 20:38 Discontinued 40 meq PO NOW ONE Potassium Chloride [Klor-Con M20] Med 11/12/16 09:00 Ordered DOSE meq PO TID Propranolol HCl [Inderal] Med 11/12/16 09:00 Ordered 20 mg PO DAILY Resuscitation Status Routine Oth 11/12/16 00:49 Ordered Oxygen Daily Oxygen 11/12/16 00:49 Ordered EKG WITH COMPARISON Routine Ther 11/11/16 Ordered Transfer Routine Transfer 11/11/16 Completed Dizziness Physical Exam - Physical Exam General Appearance: moderate distress EENT: eye inspection normal, ENT inspection normal, pharynx normal, no signs of dehydration, SUN, no nystagmus, TM's nml Neck: normal inspection, thyroid normal, supple Respiratory: no respiratory distress, breath sounds nml, chest non-tender CVS: reg rate & rhythm, heart sounds normal, equal pulses, no murmur, no gallop Abdomen: soft, no organomegaly, decreased BS Skin: warm/dry, normal color Neuro: nml orientation, nml speech, nml cognition, mood/affect nml Extremities: non-tender, normal range of motion, no evidence of injury, edema Cranial: nml as tested, no evidence of acute CVA Cerebellar: nml as tested Sensorimotor: motor nml, sensation nml Discharge Clincal Impression: Hypokalemia, Dehydration Comments: case discussed with John Mccain who accepts admission Condition: Stable Disposition: ADMITTED INPATIENT Decision to Admit: [id number] Decision Time: 00:00
[2016-11-12] MEDS: LACTULOSE 10 GM/15 ML UDC PO SCH (05:57)
[2016-11-12 06:23] LABS: APPEARANCE,URINE CLEAR (CLEAR); COLOR,URINE YELLOW (YELLOW); OCCULT BLOOD,URINE NEGATIVE (NEGATIVE)
[2016-11-12] MEDS ORDERED: MAGNESIUM HYDROXIDE 400 MG/5 ML 30ML UDC PO ONE (06:33)
--- NOTE | 2016-11-12 06:54 | Diagnostic Imaging Report ---
GINETTE MEYER [facility] [id number] [facility] [place], [place]. [address] Report Submission Date: Nov 11, 2016 9:17:07 PM CDT Patient Study Name: DAVION ROY) Date: Nov 11, 2016 8:50:32 PM CDT Modality Type: CR Gender: M Description: ABDOMEN : 51 Institution: [facility] Physician: GINETTE MEYER Abdominal series with chest Clinical history constipation weakness Technique AP supine radiograph of the abdomen upright abdomen upright chest Findings: The colon is very dilated with retained fecal material. No free air is seen. Lumbar spine dextroscoliosis and spondylosis are present. The pelvic ring is intact. There is no evidence of small bowel obstruction. The lung monroy are hyperinflated with borderline cardiomegaly and a tortuous thoracic aorta. Surgical clips overlie the right paratracheal mediastinum Impression: Constipation or fecal impaction. No evidence of perforation Lumbar spine dextroscoliosis and spondylosis Hyperinflated lungs with no acute infiltrate Electronically signed on Nov 11, 2016 9:17:07 PM CDT by: Tyrell ESCALERA
[2016-11-12] MEDS ORDERED: POTASSIUM CHLORIDE 20 MEQ/10ML VIAL IV SCH (09:00)
[2016-11-12] MEDS ORDERED: POTASSIUM CHLORIDE 20 MEQ TABLET.ER PO SCH (09:00)
[2016-11-12] MEDS ORDERED: POTASSIUM CHLORIDE 20 MEQ/NS 1,000 ML IV ONE ×2 (09:12→19:06)
[2016-11-12] MEDS: PROPRANOLOL HCL 20 MG TABLET PO SCH (09:34)
[2016-11-12] MEDS: FINASTERIDE 5 MG TABLET PO SCH (09:34)
--- NOTE | 2016-11-12 09:34 | History and Physical Report ---
History of Present Illnes - History of Present Illness Reason for Visit: dizziness History of Present Illness: Christian is a patient of Dr. Flowers and well known to us. He has been at [facility] this week going through alcohol detox. The day before yesterday he started feeling weak and dizzy. Yesterday it got much worse and he sort of staggered while walking. He reports that he "looked drunk". He was also very confused and having trouble remembering things. He presented to [facility] ER where he was found to have potassium level of 2.6. He takes Furosemide and Spironolactone daily. He sees Dr. Najera with nephrology at . He has problems with peripheral edema and is very sensitive to Na in his diet, as well as h/o hypokalemia. Currently he denies pain, including chest pain, shortness of breath, or headache. He denies vertigo with a spinning sensation, more of on off balance feeling. He denies focal weakness. He has been started on oral potassium. So far he doesn't feel any better than upon arrival. 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 Gastrointestinal: Other (esphageal varicoceles, hepatitis B with mild cirrhosis) Heme/Onc: Cancer Hepatobiliary: Hep A/B/C Psych: Addictions, Depression Musculoskeletal: Osteoarthritis Dermatology: Melanoma, Squamous cell - Past Surgical History Past Surgical History: Other (excision of melanoma, parathyriodectomy, knee arthroscopy) - Past Social History Smoke: No Alcohol: Rare Lives: Roommate Domestic Violence: Negative - Health Maintenance Health Maintenance: Cholesterol, Pneumococcal Vaccine Pneumonia Vaccine: No Resuscitation Status: Resusciation Status Resuscitation Status Full Code Review of Systems - Review of Systems Constitutional: Weakness. negative: Fever, Chills, Malaise Eyes: negative: pain, vision change ENT: negative: Ear Pain, Ear Discharge Respiratory: negative: Cough, Shortness of Breath Cardiovascular: Edema (chronic). negative: Chest Pain Gastrointestinal: negative: Nausea, Vomiting, Abdominal Pain Genitourinary: negative: Dysuria, Frequency Musculoskeletal: Other (no MSK complaints) Skin: negative: Rash, Jaundice Neurological: Weakness, Incoordination, Confusion, Other (dizziness). negative : Change in Speech - Medications/Allergies Allergies/Adverse Reactions: Allergies Allergy/AdvReac Type Severity Reaction Status Date / Time valproic acid Allergy Severe Nausea/Vomi Verified 11/11/16 21:50 ting ciprofloxacin [From Cipro] Allergy Intermediate Nausea/stomache Verified 21:20 upset ciprofloxacin HCl Allergy Intermediate Nausea/stomache Verified 11/11/16 21:20 [From Cipro] upset duloxetine Allergy Fatigue Verified 11/11/16 21:20 hydrocodone Allergy Itchy Skin Verified 11/11/16 21:20 aspirin AdvReac Intermediate Causes Verified 11/11/16 21:20 Internal Bleeding Current Inpatient Medications: Current Inpatient Medications Al Hydroxide/Mg Hydroxide (Milk Of Magnesia) 2,400 mg PO 1T ONE Stop: 11/12/16 06:34 Last Admin: 11/12/16 05:57 Dose: 2,400 mg Amitriptyline HCl (Elavil) 10 mg PO HS PRN PRN Reason: Insomnia Celecoxib (Celebrex) 200 mg PO HS TRUPTI Cholecalciferol (Vitamin D-3) 5,000 unit PO NOW ONE Stop: 11/12/16 00:50 Last Admin: 11/12/16 01:09 Dose: 5,000 unit Finasteride (Proscar) 5 mg PO DAILY [facility] Furosemide (Lasix) 40 mg IVP Q12 TRUPTI Last Admin: 11/12/16 01:15 Dose: Not Given Potassium Chloride 20 meq/ (Sodium Chloride) 1,010 mls @ 100 mls/hr IV Q10H [facility] Lactulose (Enulose) 10 gm PO 0600 TRUPTI Last Admin: 11/12/16 05:57 Dose: 10 gm Miscellaneous (Entecavir [Entecavir]) 1 mg PO DAILY [facility] Montelukast Sodium (Singulair) 10 mg PO DAILY [facility] Ondansetron HCl (Zofran Odt) 4 mg PO q6h prn nausea [facility] Potassium Chloride (Klor-Con M20) meq PO TID [facility] Propranolol HCl (Inderal) 20 mg PO DAILY [facility] Exam - Exam Vital Signs: Vital Signs (72 hours) 11/12/16 11/12/16 11/12/16 00:41 00:48 00:49 Temperature 97.3 F L Pulse Rate 62 Pulse Rate [ 57 L 61 Pulse ox] Respiratory 16 20 Rate Blood Pressure 112/64 [Left Arm] Blood Pressure 116/79 [Right Arm] O2 Sat by Pulse 97 94 94 Oximetry 11/12/16 11/12/16 11/12/16 01:49 01:52 02:00 Temperature 97.3 F L Pulse Rate 62 62 Pulse Rate [ 61 Pulse ox] Respiratory 20 Rate Blood Pressure [Left Arm] Blood Pressure 116/79 [Right Arm] O2 Sat by Pulse 94 Oximetry 11/12/16 11/12/16 11/12/16 02:12 04:00 06:00 Temperature 97.5 F L Pulse Rate 62 Pulse Rate [ 65 Pulse ox] Respiratory 20 Rate Blood Pressure 102/66 [Left Arm] Blood Pressure [Right Arm] O2 Sat by Pulse 94 94 Oximetry General: Alert, Oriented to Person, Oriented to Place, Cooperative, No acute distress HEENT: Atraumatic, PERRLA, EOMI Neck: No: Stridor, Rigidity Lungs: Clear to auscultation, Normal air movement, Speaks full Sentences. No: Respiratory Distress Cardiovascular: Regular rate. No: Rubs, Murmur Peripheral Edema: mild, non-pitting, slight tenderness Abdomen: Soft. No: Distended, Rigid Integumentary: Normal, [place], Warm, Dry Extremities: No clubbing, No cyanosis, Other (mild non-pitting edema and mild tenderness to palpation) Neurological: Normal speech, Cranial nerves 3-12 NL, Generalized Weakness, Other (off balance, needs help with ambulation) Psych/Mental Status: Other (seems confused, trouble finding words) - Laboratory Results Laboratory Results: K 2.6 H/H 12.8/34.1 WBC 4.4 Na 135 AST/ALT 41/37 BUN 35 Racing Board Marker 1.10 Abdominal series indicated some constipation Assessment/Plan - Assessment/Plan (1) Dehydration Status: Acute Current Visit: Yes Narrative Support Text: Pt on fluids 100ml/hr, will also hold Metazalone (2) Hypokalemia Status: Acute Current Visit: Yes Plan: Pt started on oral potassium replacement 20meq TID, will hold Metolazone, recheck labs this afternoon VTE Assessment - RISK FACTOR SCORE VTE RISK FACTOR SCORES: AGE 40-60 YEARS
[2016-11-12] MEDS: MONTELUKAST SODIUM 10 MG TABLET PO SCH (09:35)
[2016-11-12] MEDS: 0.9 % SODIUM CHLORIDE 1,000 ML with POTASSIUM CHLORIDE 20 MEQ IV SCH ×4 (10:13→19:26)
[2016-11-12] MEDS: ENTECAVIR 1 MG PO SCH (12:31)
[2016-11-12 14:36] LABS: BASOPHILS % 0.6 (0.0-1.5); EOSINOPHILS % 2.8 % (0.0-6.8); MEAN CORPUSCULAR HEMOGLOBIN 32.6 pg (28.0-34.0); MEAN CORPUSCULAR VOLUME 91.6 fl (80.0-100.0); MONOCYTES % 12.3 % (0.0-11.0); NEUTROPHILS # 1.2 # k/uL (1.4-7.7)
[2016-11-12 15:05] LABS: eGFR (African) > 60; eGFR (Non-African) > 60
[2016-11-12] MEDS: POTASSIUM CHLORIDE 20 MEQ TABLET.ER PO SCH ×3 (16:34→20:31)
[2016-11-12] MEDS: CELECOXIB 100 MG CAPSULE PO SCH (20:31)
[2016-11-12] MEDS: FLUoxetine HCL 10 MG CAPSULE PO SCH (20:50)
[2016-11-12] MEDS ORDERED: ATORVASTATIN CALCIUM 80 MG TABLET PO ONE (20:53)
[2016-11-12] MEDS ORDERED: ENOXAPARIN SODIUM 40 MG/0.4 ML DISP.SYRIN SQ ONE (20:53)
[2016-11-12] MEDS ORDERED: METOPROLOL TARTRATE 50 MG TABLET ONE (20:53)
[2016-11-12] MEDS ORDERED: PANTOPRAZOLE SODIUM 40 MG TABLET ONE (20:53)
[2016-11-13] MEDS ORDERED: POTASSIUM CHLORIDE IV ONE (05:28)
[2016-11-13] MEDS ORDERED: 0.9 % SODIUM CHLORIDE 1,000 ML IV ONE (05:28)
[2016-11-13] MEDS ORDERED: SODIUM CHLORIDE IV ONE (05:28)
[2016-11-13] MEDS ORDERED: POTASSIUM CHLORIDE 20 MEQ/NS 1,000 ML IV ONE (05:34)
[2016-11-13] MEDS ORDERED: SALINE FLUSH 10 ML DISP.SYRIN IVF ONE ×2 (10:04→10:39)
[2016-11-13] MEDS ORDERED: FUROSEMIDE 20 MG/2 ML VIAL ONE (10:39)
[2016-11-13 12:39] LABS: eGFR (African) > 60; eGFR (Non-African) > 60
[2016-11-13 12:40] LABS: BASOPHILS % 0.8 (0.0-1.5); EOSINOPHILS % 2.8 % (0.0-6.8); MEAN CORPUSCULAR HEMOGLOBIN 32.8 pg (28.0-34.0); MEAN CORPUSCULAR VOLUME 89.8 fl (80.0-100.0); MONOCYTES % 9.9 % (0.0-11.0); NEUTROPHILS # 1.2 # k/uL (1.4-7.7)
[2016-11-13] MEDS: FUROSEMIDE 40 MG/4 ML VIAL IVP SCH ×2 (12:43→20:45)
[2016-11-13] MEDS: 0.9 % SODIUM CHLORIDE 1,000 ML with POTASSIUM CHLORIDE 20 MEQ IV SCH ×4 (12:43→15:23)
[2016-11-13] MEDS: LACTULOSE 10 GM/15 ML UDC PO SCH (12:43)
[2016-11-13] MEDS: POTASSIUM CHLORIDE 20 MEQ TABLET.ER PO SCH ×4 (12:44→17:56)
[2016-11-13] MEDS: FINASTERIDE 5 MG TABLET PO SCH (12:44)
[2016-11-13] MEDS: ENTECAVIR 1 MG PO SCH (12:44)
[2016-11-13] MEDS: MONTELUKAST SODIUM 10 MG TABLET PO SCH (12:44)
[2016-11-13] MEDS: PROPRANOLOL HCL 20 MG TABLET PO SCH (12:44)
[2016-11-13] MEDS: SALINE FLUSH 10 ML DISP.SYRIN IV SCH ×2 (17:56→20:45)
[2016-11-13] MEDS: CELECOXIB 100 MG CAPSULE PO SCH (20:34)
[2016-11-13] MEDS: FLUoxetine HCL 10 MG CAPSULE PO SCH (20:35)
[2016-11-14] MEDS: LACTULOSE 10 GM/15 ML UDC PO SCH (06:14)
[2016-11-14 07:03] LABS: MEAN CORPUSCULAR VOLUME 92.4 fl (80.0-100.0)
[2016-11-14 07:44] LABS: eGFR (African) > 60; eGFR (Non-African) > 60
--- NOTE | 2016-11-14 08:57 | Inpatient Progress Note ---
Subjective - Required Recertification Statement I anticipate X number of days because-include discharge plan: 2 - Review of Systems Events since last encounter: Christian is still a little weak today. His potassium is still low at 2.9, and his white count is 1.5. Plans are for him to return to [facility] when we can get his potassium back up. He does not appear to be experiencing any alcohol withdrawal at this time. General: Appetite (improved). Denies: Chills, Night Sweats, Malaise HEENT: Denies: Head Aches Pulmonary: Denies: Dyspnea, Cough Cardiovascular: Denies: Chest Pain Gastrointestinal: Denies: Nausea, Vomiting Genitourinary: Denies: Dysuria Musculoskeletal: Denies: Neck Pain Neurological: Weakness. Denies: Confusion Objective - Exam Vitals and I&O: Vital Signs Temp 97.4 F L 11/14/16 05:56 Pulse 69 11/14/16 05:56 Resp 17 11/14/16 05:56 BP 111/60 11/14/16 05:56 Pulse Ox 94 11/14/16 05:56 Intake & Output 11/13/16 11/13/16 11/14/16 11:59 23:59 11:59 Intake Total 360 480 Balance 360 480 Intake: Oral 360 480 Other: Voiding Method Toilet # Voids 3 # Bowel Movements 0 General: Oriented to Person, Oriented to Place, Obese HEENT: Atraumatic, PERRLA, EOMI Neck: Supple, No JVD Lungs: Clear to auscultation Cardiovascular: Regular rate, Normal S1, Normal S2 Abdomen: Normal bowel sounds Extremities: No clubbing, Other (2+ edema) Skin: Normal Neurological: Normal speech Psych/Mental Status: Mental status NL - Results Results: Laboratory Results WBC 1.30 K/ul (4.00-12.00) L* 11/14/16 06:10 RBC 3.23 M/ul (3.90-5.20) L 11/14/16 06:10 Hgb 10.6 g/dL (12.0-18.0) L 11/14/16 06:10 Hct 29.8 % (37.0-53.0) L 11/14/16 06:10 MCV 92.4 fl (80.0-100.0) 11/14/16 06:10 MCH 33.0 pg (28.0-34.0) 11/14/16 06:10 MCHC 35.7 g/dL (30.0-36.0) 11/14/16 06:10 RDW 13.8 % (11.3-14.3) 11/14/16 06:10 Plt Count 31 K/mm3 (130-400) L 11/14/16 06:10 Neut % (Auto) 51.9 % (39.0-79.0) 11/13/16 08:00 Lymph % (Auto) 33.5 % (16.0-50.0) 11/13/16 08:00 [place] % (Auto) 9.9 % (0.0-11.0) 11/13/16 08:00 Eos % (Auto) 2.8 % (0.0-6.8) 11/13/16 08:00 Baso % (Auto) 0.8 (0.0-1.5) 11/13/16 08:00 Neut # (Auto) 1.2 # k/uL (1.4-7.7) L 11/13/16 08:00 Lymph # (Auto) 0.8 # k/uL (0.6-4.0) 11/13/16 08:00 [place] # (Auto) 0.2 # k/uL (0.0-0.9) 11/13/16 08:00 Eos # (Auto) 0.1 # k/uL (0.0-0.6) 11/13/16 08:00 Baso # (Auto) 0.0 # k/uL (0.0-0.5) 11/13/16 08:00 Reactive Lymphs % 1.1 % (0.0-5.0) 11/13/16 08:00 Reactive Lymphs # 0.0 # k/uL (0.0-0.8) 11/13/16 08:00 Sodium 134 mmol/L (137-145) L 11/14/16 06:10 Potassium 2.9 mmol/L (3.5-5.1) L 11/14/16 06:10 Chloride 98 mmol/L (98-107) 11/14/16 06:10 Carbon Dioxide 32 mmol/L (22-30) H 11/14/16 06:10 BUN 18 mg/dL (9-20) 11/14/16 06:10 Creatinine 0.70 mg/dL (0.66-1.25) 11/14/16 06:10 Estimated Creat Clear 168 11/14/16 06:10 Est GFR ( Amer) > 60 (60-) 11/14/16 06:10 Est GFR (Non-Af Amer) > 60 (60-) 11/14/16 06:10 Glucose 90 mg/dL (74-106) 11/14/16 06:10 Calcium 8.3 mg/dL (8.4-10.2) L 11/14/16 06:10 Magnesium 1.8 mg/dL (1.6-2.6) 11/12/16 14:22 Total Bilirubin 2.1 mg/dL (0.2-1.3) H 11/11/16 20:06 AST 41 U/L (15-46) 11/11/16 20:06 ALT 37 U/L (13-69) 11/11/16 20:06 Alkaline Phosphatase 60 U/L (38-126) 11/11/16 20:06 Total Protein 6.8 g/dL (6.3-8.2) 11/11/16 20:06 Albumin 3.5 g/dL (3.5-5.0) 11/11/16 20:06 Urine Color Yellow (YELLOW) 11/11/16 19:34 Urine Appearance Clear (CLEAR) 11/11/16 19:34 Urine pH 7.0 (5.0 - 8.0) 11/11/16 19:34 Ur Specific [place] 1.015 (1.010-1.030) 11/11/16 19:34 Urine Protein Negative mg/dL (NEGATIVE) 11/11/16 19:34 Urine Ketones Negative mg/dL (NEGATIVE) 11/11/16 19:34 Urine Occult Blood Negative (NEGATIVE) 11/11/16 19:34 Urine Nitrite Negative (NEGATIVE) 11/11/16 19:34 Urine Bilirubin Negative (NEGATIVE) 11/11/16 19:34 Urine Urobilinogen 4.0 Eu (0.2-1.0) H 11/11/16 19:34 Ur Leukocyte Esterase Negative (NEGATIVE) 11/11/16 19:34 Urine Glucose Negative mg/dL (NEGATIVE) 11/11/16 19:34 Ethyl Alcohol < 10.0 mg/dL (0.0-10.0) 11/11/16 20:06 Assessment/Plan - Assessment/Plan (1) Hypokalemia Status: Acute Current Visit: Yes Assessment: Will increase potassium to 120 meq po qd today Check CMP in am (2) Alcoholism Status: Acute Current Visit: Yes Assessment: Currently at [facility] Plan: Plan for return to [facility] on discharge (3) Dehydration Status: Acute Current Visit: Yes Assessment: Improved (4) History of hepatitis B Status: Chronic Current Visit: No Assessment: Chronic, followed by Dr. Medina at [place]
[2016-11-14] MEDS ORDERED: FUROSEMIDE 20 MG/2 ML VIAL ONE (09:27)
[2016-11-14] MEDS: FUROSEMIDE 40 MG/4 ML VIAL IVP SCH ×2 (09:30→21:59)
[2016-11-14] MEDS: ENTECAVIR 1 MG PO SCH (09:30)
[2016-11-14] MEDS: MONTELUKAST SODIUM 10 MG TABLET PO SCH (09:31)
[2016-11-14] MEDS: FINASTERIDE 5 MG TABLET PO SCH (09:31)
[2016-11-14] MEDS: PROPRANOLOL HCL 20 MG TABLET PO SCH (09:31)
[2016-11-14] MEDS: POTASSIUM CHLORIDE 20 MEQ TABLET.ER PO SCH ×3 (09:32→18:18)
[2016-11-14] MEDS: SALINE FLUSH 10 ML DISP.SYRIN IV SCH ×2 (09:36→19:56)
[2016-11-14 09:44] LABS: EOSINOPHILS % 7 % (0-7); MONOCYTES % 6 % (0-11); SEGMENTED NEUTROPHILS % 48 % (39-79)
[2016-11-14] MEDS: CELECOXIB 100 MG CAPSULE PO SCH (19:55)
[2016-11-14] MEDS: FLUoxetine HCL 10 MG CAPSULE PO SCH (19:55)
[2016-11-15] MEDS: LACTULOSE 10 GM/15 ML UDC PO SCH (05:30)
[2016-11-15 06:20] LABS: MEAN CORPUSCULAR HEMOGLOBIN 33.1 pg (28.0-34.0); MEAN CORPUSCULAR VOLUME 89.6 fl (80.0-100.0)
[2016-11-15 07:18] LABS: eGFR (African) > 60; eGFR (Non-African) > 60
[2016-11-15] MEDS ORDERED: POTASSIUM CHLORIDE 20 MEQ TABLET.ER PO SCH (10:11)
[2016-11-15] MEDS: MONTELUKAST SODIUM 10 MG TABLET PO SCH (10:32)
[2016-11-15] MEDS: FINASTERIDE 5 MG TABLET PO SCH (10:32)
[2016-11-15] MEDS: ENTECAVIR 1 MG PO SCH (10:33)
[2016-11-15] MEDS: POTASSIUM CHLORIDE 20 MEQ TABLET.ER PO SCH ×2 (10:37→17:53)
[2016-11-15] MEDS: FUROSEMIDE 40 MG/4 ML VIAL IVP SCH ×2 (10:57→20:47)
[2016-11-15] MEDS: PROPRANOLOL HCL 20 MG TABLET PO SCH (11:10)
[2016-11-15] MEDS: SALINE FLUSH 10 ML DISP.SYRIN IV SCH ×2 (11:19→20:48)
--- NOTE | 2016-11-15 11:26 | Inpatient Progress Note ---
Subjective - Required Recertification Statement I anticipate X number of days because-include discharge plan: 1 - Review of Systems Events since last encounter: Christian is a little stronger today. His white count is a little lower today and his potassium, although improved is not back to the normal range yet. He can walk with a wheelchair, but needs to rest frequently. I have now increased his potassium to 180meq po daily (60 meq po TID). General: Fatigue. Denies: Chills, Night Sweats HEENT: Denies: Head Aches, Visual Changes Pulmonary: Denies: Dyspnea, Cough Cardiovascular: Denies: Chest Pain, Palpitations Gastrointestinal: Denies: Nausea, Vomiting Genitourinary: Denies: Dysuria Neurological: Incoordination. Denies: Change in Speech, Confusion Objective - Exam Vitals and I&O: Vital Signs Temp 97.9 F 11/15/16 09:26 Pulse 75 11/15/16 09:26 Resp 20 11/15/16 09:26 BP 138/76 11/15/16 09:26 Pulse Ox 97 11/15/16 09:26 Intake & Output 11/14/16 11/14/16 11/15/16 11:59 23:59 11:59 Intake Total 360 880 600 Balance 360 880 600 Weight 110 kg Intake: Oral 360 880 600 Other: Voiding Method Toilet Toilet Urinal # Voids 3 4 4 # Bowel Movements 1 General: Alert, Oriented to Person, Oriented to Place, Cooperative HEENT: Atraumatic Neck: Supple, No JVD Lungs: Clear to auscultation, Normal air movement Cardiovascular: Regular rate Abdomen: Normal bowel sounds, Distended Extremities: Other (2+ edema) Skin: Normal, [place] Neurological: Normal speech, Strength Equal Bilat, Generalized Weakness Psych/Mental Status: Intact Judgment - Results Results: Laboratory Results WBC 1.20 K/ul (4.00-12.00) L* 11/15/16 06:00 RBC 3.14 M/ul (3.90-5.20) L 11/15/16 06:00 Hgb 10.4 g/dL (12.0-18.0) L 11/15/16 06:00 Hct 28.1 % (37.0-53.0) L 11/15/16 06:00 MCV 89.6 fl (80.0-100.0) 11/15/16 06:00 MCH 33.1 pg (28.0-34.0) 11/15/16 06:00 MCHC 37.0 g/dL (30.0-36.0) H 11/15/16 06:00 RDW 13.6 % (11.3-14.3) 11/15/16 06:00 Plt Count 28 K/mm3 (130-400) L 11/15/16 06:00 Neut % (Auto) 51.9 % (39.0-79.0) 11/13/16 08:00 Lymph % (Auto) 33.5 % (16.0-50.0) 11/13/16 08:00 [place] % (Auto) 9.9 % (0.0-11.0) 11/13/16 08:00 Eos % (Auto) 2.8 % (0.0-6.8) 11/13/16 08:00 Baso % (Auto) 0.8 (0.0-1.5) 11/13/16 08:00 Neut # (Auto) 1.2 # k/uL (1.4-7.7) L 11/13/16 08:00 Lymph # (Auto) 0.8 # k/uL (0.6-4.0) 11/13/16 08:00 [place] # (Auto) 0.2 # k/uL (0.0-0.9) 11/13/16 08:00 Eos # (Auto) 0.1 # k/uL (0.0-0.6) 11/13/16 08:00 Baso # (Auto) 0.0 # k/uL (0.0-0.5) 11/13/16 08:00 Seg Neutrophils % 48 % (39-79) 11/14/16 06:10 Band Neutrophils % 1 % (0-12) 11/14/16 06:10 Lymphocytes % 38 % (16-50) 11/14/16 06:10 Reactive Lymphs % 1.1 % (0.0-5.0) 11/13/16 08:00 Monocytes % 6 % (0-11) 11/14/16 06:10 Eosinophils % 7 % (0-7) 11/14/16 06:10 Reactive Lymphs # 0.0 # k/uL (0.0-0.8) 11/13/16 08:00 Plt Morphology Comment Normal (NORMAL) 11/14/16 06:10 RBC Morph Comment Normal (NORMAL) 11/14/16 06:10 Sodium 134 mmol/L (137-145) L 11/15/16 06:00 Potassium 3.1 mmol/L (3.5-5.1) L 11/15/16 06:00 Chloride 98 mmol/L (98-107) 11/15/16 06:00 Carbon Dioxide 31 mmol/L (22-30) H 11/15/16 06:00 BUN 16 mg/dL (9-20) 11/15/16 06:00 Creatinine 0.70 mg/dL (0.66-1.25) 11/15/16 06:00 Estimated Creat Clear 168 11/15/16 06:00 Est GFR ( Amer) > 60 (60-) 11/15/16 06:00 Est GFR (Non-Af Amer) > 60 (60-) 11/15/16 06:00 Glucose 93 mg/dL (74-106) 11/15/16 06:00 Calcium 8.2 mg/dL (8.4-10.2) L 11/15/16 06:00 Magnesium 1.8 mg/dL (1.6-2.6) 11/12/16 14:22 Total Bilirubin 1.4 mg/dL (0.2-1.3) H 11/15/16 06:00 AST 36 U/L (15-46) 11/15/16 06:00 ALT 37 U/L (13-69) 11/15/16 06:00 Alkaline Phosphatase 48 U/L (38-126) 11/15/16 06:00 Total Protein 5.1 g/dL (6.3-8.2) L 11/15/16 06:00 Albumin 2.6 g/dL (3.5-5.0) L 11/15/16 06:00 Urine Color Yellow (YELLOW) 11/11/16 19:34 Urine Appearance Clear (CLEAR) 11/11/16 19:34 Urine pH 7.0 (5.0 - 8.0) 11/11/16 19:34 Ur Specific [place] 1.015 (1.010-1.030) 11/11/16 19:34 Urine Protein Negative mg/dL (NEGATIVE) 11/11/16 19:34 Urine Ketones Negative mg/dL (NEGATIVE) 11/11/16 19:34 Urine Occult Blood Negative (NEGATIVE) 11/11/16 19:34 Urine Nitrite Negative (NEGATIVE) 11/11/16 19:34 Urine Bilirubin Negative (NEGATIVE) 11/11/16 19:34 Urine Urobilinogen 4.0 Eu (0.2-1.0) H 11/11/16 19:34 Ur Leukocyte Esterase Negative (NEGATIVE) 11/11/16 19:34 Urine Glucose Negative mg/dL (NEGATIVE) 11/11/16 19:34 Ethyl Alcohol < 10.0 mg/dL (0.0-10.0) 11/11/16 20:06 Assessment/Plan - Assessment/Plan (1) Hypokalemia Status: Acute Current Visit: Yes Assessment: Still low despite steadily increasing potassium dosage Plan: Increased potassium to 180 meq po qd, recheck in am. Hope for discharge back to [facility] (2) Alcoholism Status: Acute Current Visit: Yes Assessment: Chronic, currently at inpatient treatment for this (3) Dehydration Status: Acute Current Visit: Yes Assessment: Improved (4) History of hepatitis B Status: Chronic Current Visit: No
[2016-11-15] MEDS: CELECOXIB 100 MG CAPSULE PO SCH (20:16)
[2016-11-15] MEDS: FLUoxetine HCL 10 MG CAPSULE PO SCH (20:17)
[2016-11-16] MEDS: LACTULOSE 10 GM/15 ML UDC PO SCH (05:47)
[2016-11-16] MEDS: POTASSIUM CHLORIDE 20 MEQ TABLET.ER PO SCH (06:07)
[2016-11-16 06:27] LABS: MEAN CORPUSCULAR HEMOGLOBIN 33.1 pg (28.0-34.0); MEAN CORPUSCULAR VOLUME 90.5 fl (80.0-100.0)
[2016-11-16 06:47] LABS: eGFR (African) > 60; eGFR (Non-African) > 60
[2016-11-16] MEDS ORDERED: POTASSIUM CHLORIDE 20 MEQ TABLET.ER PO SCH (08:00)
[2016-11-16] MEDS: PROPRANOLOL HCL 20 MG TABLET PO SCH (08:59)
[2016-11-16] MEDS: MONTELUKAST SODIUM 10 MG TABLET PO SCH (09:00)
[2016-11-16] MEDS: FINASTERIDE 5 MG TABLET PO SCH (09:00)
[2016-11-16] MEDS: SALINE FLUSH 10 ML DISP.SYRIN IV SCH (09:01)
[2016-11-16] MEDS: ENTECAVIR 1 MG PO SCH (09:02)
[2016-11-16] MEDS: FUROSEMIDE 40 MG/4 ML VIAL IVP SCH (10:17)
[2016-11-16 10:28] VITALS: BP 115/66
--- NOTE | 2016-11-16 11:57 | Discharge Summary ---
DATE OF ADMISSION: November 12, 2016 DATE OF DISCHARGE: November 16, 2016 DIAGNOSES ON THIS HOSPITALIZATION: 1. Alcoholism. 2. Hypokalemia. 3. Chronic hepatitis B. 4. Dehydration. SUMMARIZATION OF ADMISSION HISTORY AND PHYSICAL: This is a 61-year-old male who was at [facility] prior to his admission. He had been having some significant weakness and dizziness. He was having some staggering when he walked. He was brought to the emergency room for an evaluation where he was noted to have a potassium of 2.6. He had been on furosemide and spironolactone and despite this, he had sudden increasing potassium requirements. He had seen Dr. Najera for this in Nephrology at . He , in fact, has a follow up appointment with him tomorrow. HOSPITAL COURSE: He was admitted. We continued to increase his potassium with continuation of his Lasix and spironolactone. I did hold his metolazone. His potassium was noted to be 3.3 this morning and he was significantly improved, so he was sent back to [facility]. I did increase his potassium to 20 mEq 3 p.o. t.i.d. for a total daily dose of 180 mEq daily. He was discharged then back to [facility]. CONDITION ON DISCHARGE: He is discharged to [facility] in improved condition. DISCHARGE INSTRUCTIONS: 1. He will follow up tomorrow with Dr. Najera. 2. Check a CMP tomorrow morning to see how his potassium is doing in the morning. 3. Continue to hold his metolazone but continue the Lasix, potassium, and spironolactone at their current doses, which is 40 mg b.i.d. of the Lasix and 180 mEq of potassium, and 100 mg of spironolactone. 4. I will continue to follow him at [facility]. [facility]
== END 2016-11-16 10:15 | disposition short-term general hospital (02) ==
LOC: ED 18:55 → SOUTH 18:56 → UNDOADMOB 11-12 00:30 → SOUTH 11-12 00:40 → UNDODISOB 11-16 10:15
PROVIDERS: ADMIT Physician Assistant; ATTEND Physician Assistant
DX: F10.20 Alcohol dependence, uncomplicated (principal); E87.6 Hypokalemia; E86.0 Dehydration; B19.10 Unspecified viral hepatitis B without hepatic coma
CPT/HCPCS: 36415; 74022; 80048; 80053; 81002; 83735; 85025; 85027; 96361; 96374; 96375; 96376; 99283; 99284; A9270; G0378; G0480; J1650; J1940; J3480; J7030; 80320; S1016

== ENCOUNTER → 2016-12-10 | Outpatient (CLI) | payer MEDICARE, OTHER ==
[2016-11-16 10:28] VITALS: BP 115/66
[2016-12-12 08:31] LABS: URINE CREAT MG/DAY 1222 mg/day (1040-2350)
== END ==
LOC: LAB 14:04
PROVIDERS: ATTEND Internal Medicine
DX: E83.50 Unspecified disorder of calcium metabolism (principal)
CPT/HCPCS: 82340; 82570

== ENCOUNTER 2016-12-19 17:05 | Outpatient (CLI) | payer MEDICARE, OTHER ==
[2016-12-19 17:51] LABS: eGFR (African) > 60; eGFR (Non-African) > 60
== END 2016-12-19 17:06 ==
LOC: LAB 17:05
PROVIDERS: ATTEND Family Medicine
DX: E87.6 Hypokalemia (principal)
CPT/HCPCS: 36415; 80048

== ENCOUNTER 2016-12-26 17:25 | Outpatient (CLI) | payer MEDICARE, OTHER ==
[2016-12-26 18:06] LABS: eGFR (African) > 60; eGFR (Non-African) > 60
[2016-12-28 10:31] LABS: ADENOVIRUS F 40/41 Not Detected (Not Detected); ASTROVIRUS Not Detected (Not Detected); C. DIFFICILE (TOXIN A/B) Not Detected (Not Detected); CRYPTOSPORIDIUM Not Detected (Not Detected); CYCLOSPORA CAYETANENSIS Not Detected (Not Detected); ENTAMOEBA HISTOLYTICA Not Detected (Not Detected); GIARDIA LAMBLIA Not Detected (Not Detected); ROTAVIRUS A Not Detected (Not Detected); SAPOVIRUS Not Detected (Not Detected); VIBRIO CHOLERAE Not Detected (Not Detected)
== END 2016-12-26 17:26 ==
LOC: LAB 17:25
PROVIDERS: ATTEND Family Medicine
DX: E87.6 Hypokalemia (principal); K58.0 Irritable bowel syndrome with diarrhea
CPT/HCPCS: 36415; 80053; 87507

== ENCOUNTER 2017-02-03 14:22 | Outpatient (CLI) | payer MEDICARE, OTHER ==
[2017-02-03 14:40] LABS: BASOPHILS % 0.3 (0.0-1.5); MEAN CORPUSCULAR HEMOGLOBIN 31.6 pg (28.0-34.0); MEAN CORPUSCULAR VOLUME 89.9 fl (80.0-100.0); MONOCYTES % 9.7 % (0.0-11.0); NEUTROPHILS # 2.8 # k/uL (1.4-7.7)
[2017-02-03 14:59] LABS: eGFR (African) > 60; eGFR (Non-African) > 60
== END 2017-02-03 14:30 ==
LOC: LAB 14:22
PROVIDERS: ATTEND Family Medicine
DX: B18.0 Chronic viral hepatitis B with delta-agent (principal); K52.9 Noninfective gastroenteritis and colitis, unspecified; D64.9 Anemia, unspecified
CPT/HCPCS: 36415; 80053; 83540; 85025; 86141

== ENCOUNTER 2017-03-10 12:36 | Outpatient (CLI) | payer MEDICARE, OTHER ==
[2017-03-10 13:09] LABS: BASOPHILS % 0.4 (0.0-1.5); EOSINOPHILS % 3.7 % (0.0-6.8); MEAN CORPUSCULAR HEMOGLOBIN 31.2 pg (28.0-34.0); MEAN CORPUSCULAR VOLUME 89.7 fl (80.0-100.0); NEUTROPHILS # 2.4 # k/uL (1.4-7.7)
[2017-03-10 13:55] LABS: eGFR (African) > 60; eGFR (Non-African) > 60
== END 2017-03-10 12:37 ==
LOC: LAB 12:36
PROVIDERS: ATTEND Family Medicine
DX: E87.6 Hypokalemia (principal); D69.6 Thrombocytopenia, unspecified; K52.9 Noninfective gastroenteritis and colitis, unspecified
CPT/HCPCS: 36415; 80053; 83516; 85025

== ENCOUNTER 2017-04-26 12:06 | Outpatient (CLI) | payer MEDICARE, OTHER ==
[2017-04-26 12:40] LABS: BASOPHILS % 0.3 (0.0-1.5); EOSINOPHILS % 2.2 % (0.0-6.8); MEAN CORPUSCULAR HEMOGLOBIN 31.3 pg (28.0-34.0); MEAN CORPUSCULAR VOLUME 92.3 fl (80.0-100.0); MONOCYTES % 6.4 % (0.0-11.0); NEUTROPHILS # 2.3 # k/uL (1.4-7.7)
[2017-04-26 13:01] LABS: eGFR (African) > 60; eGFR (Non-African) > 60
== END 2017-04-26 13:47 ==
LOC: LAB 12:06
PROVIDERS: ATTEND Family Medicine
DX: E72.20 Disorder of urea cycle metabolism, unspecified (principal); B18.0 Chronic viral hepatitis B with delta-agent
CPT/HCPCS: 36415; 80053; 82140; 85025

== ENCOUNTER 2017-05-03 11:00 | Outpatient (CLI) | payer MEDICARE, OTHER ==
[2017-05-03 11:42] LABS: eGFR (African) > 60; eGFR (Non-African) > 60
== END 2017-05-03 11:10 ==
LOC: LAB 11:00
PROVIDERS: ATTEND Family Medicine
DX: I10 Essential (primary) hypertension (principal); E72.20 Disorder of urea cycle metabolism, unspecified
CPT/HCPCS: 36415; 80053; 82140

== ENCOUNTER 2017-05-16 11:56 | Outpatient (CLI) | payer MEDICARE, OTHER | END 2017-05-16 11:58 | LOC: LAB 11:56 | PROVIDERS: ATTEND Family Medicine | DX: E72.20 Disorder of urea cycle metabolism, unspecified (principal); R41.3 Other amnesia | CPT/HCPCS: 36415; 82140; 82607; 82746 ==

== ENCOUNTER 2017-05-19 10:59 | Outpatient (CLI) | payer MEDICARE, OTHER | END 2017-05-19 11:00 | LOC: LAB 10:59 | PROVIDERS: ATTEND Internal Medicine Gastroenterology | DX: K74.60 Unspecified cirrhosis of liver (principal) | CPT/HCPCS: 36415; 82105 ==

== ENCOUNTER 2017-06-13 06:41 | Emergency (ER) | payer MEDICARE, OTHER ==
[2017-06-13] MEDS ORDERED: MECLIZINE HCL 25 MG TABLET PO ONE (07:24)
[2017-06-13] MEDS ORDERED: 0.9 % SODIUM CHLORIDE 1,000 ML IV ONE (07:26)
[2017-06-13] MEDS ORDERED: 0.9 % SODIUM CHLORIDE 1,000 ML IV SCH (07:30)
--- NOTE | 2017-06-13 07:35 | ED Physician Documentation ---
Dizziness - HISTORIAN Historian: patient - HPI Stated Complaint: Dizziness Chief Complaint: Dizziness (vertigo) Additional Information: 62yo white male who complains that he developed some vertigo symptoms at 3am today. Patient states that he almost fell, was having a difficult time ambulating, had to touch garcia to keep his balance. Almost fell a couple of times. Went back to bed and again at 6:30 AM got up again with similar symptoms. Became nauseated with no vomiting noted. Patient states that the dizzinsee seem to be precipitated by movement of his head and changing positions. Worse with rolling over in bed. As long as he stays still does not seem to be having any symptoms. Has had some tinnitis -high pitched ring noise. Has had for some time. Might be a little worse. States he does have some hearing lost. Is slightly worse??? Has never had any previous similar symptoms. Timing: sudden onset Last known Well Date: 06/13/17 Last Known Well Time: 03:00 Last known Well Code/Unknown Code: Known Severity: moderate Associated Symptoms: hearing loss, ringing in ear, nausea, sense of spinning, sense of falling. denies: ear pain, vomiting, headache, weakness, numbness, light headedness, fainted, nearly fainted Decreased Ability to Stand/ Walk: off balance Usually: none Worsened By: changing position, movement of head - ROS CONST: none. denies: fever, chills EYES/ENT: none - PAST HX Past History: other (IBS recurrent sinusitis, OA, bipolar disease, alcoholic cirrhosis of liver, hepatitis B) Surgeries/Procedures: other (removal of melenoma, squamous cell Ca, parathyroidectomy, R knee arthroscopy, ) Immunizations: tetanus, other (zoostivax) Allergies/Adverse Reactions: Allergies Allergy/AdvReac Type Severity Reaction Status Date / Time valproic acid Allergy Severe Nausea/Vomi Verified 06/13/17 06:57 ting ciprofloxacin [From Cipro] Allergy Intermediate Nausea/stomache Verified 06:57 upset ciprofloxacin HCl Allergy Intermediate Nausea/stomache Verified 06/13/17 06:57 [From Cipro] upset duloxetine Allergy Fatigue Verified 06/13/17 06:57 hydrocodone Allergy Itchy Skin Verified 06/13/17 06:57 aspirin AdvReac Intermediate Causes Verified 06/13/17 06:57 Internal Bleeding Home Medications: Ambulatory Orders Medication Instructions Recorded Cholecalciferol (Vitamin D3) 5,000 unit PO DAILY u2 11/25/14 [Vitamin D-3] Lysine HCl [L-Lysine] 1,000 mg PO DAILY u2 11/25/14 Montelukast Sodium [Singulair] 1 tab PO DAILY 06/13/17 Rifaximin [Xifaxan] 550 mg PO BID 06/13/17 Topiramate [Topamax] 25 mg PO BID 06/13/17 - SOCIAL HX Smoking History: non-smoker Alcohol Use: none Drug Use: none - FAMILY HX Family History: other (mother cancer) - VITAL SIGNS Vital Signs: Vital Signs Temp Pulse Resp BP Pulse Ox 97.2 F L 60 16 101/52 96 06/13/17 06:50 06/13/17 06:50 06/13/17 06:50 06/13/17 06:50 06/13/17 06:50 - REVIEWED ASSESSMENTS Nursing Assessment Reviewed: Yes Vitals Reviewed: Yes ED Results Lab/Radiology - Orders Orders: ED Orders Category Date Time Status Place IV Lock 1T Care 06/13/17 07:22 Active CBC/PLATELET/DIFF Routine Lab 06/13/17 07:22 Ordered CMP Routine Lab 06/13/17 07:22 Ordered 0.9 % Sodium Chloride [Normal Saline] 1,000 ml Med 06/13/17 07:30 Ordered IV .Q1H Meclizine HCl [Antivert] Med 06/13/17 07:24 Once 25 mg PO NOW ONE Dizziness Physical Exam - Physical Exam General Appearance: no distress EENT: eye inspection normal, ENT inspection normal, pharynx normal, no signs of dehydration, TM's nml, hearing deficit (mild) Neck: normal inspection, thyroid normal, supple. No: lymphadenopathy, stiff neck, carotid bruit, meningismus Respiratory: no respiratory distress, breath sounds nml, chest non-tender. No: wheezes, rales, rhonchi CVS: reg rate & rhythm, heart sounds normal, equal pulses, no murmur Abdomen: soft, no organomegaly, normal bowel sounds, no distension. No: hepatomegaly Skin: warm/dry, normal color Neuro: nml orientation, nml speech, nml cognition, mood/affect nml Cranial: nml as tested, no evidence of acute CVA Cerebellar: nml as tested Sensorimotor: motor nml, sensation nml, DTR's nml Discharge Clincal Impression: Leukopenia Benign paroxysmal vertigo Qualifiers: Laterality: unspecified laterality Qualified Code(s): H81.10 - Benign paroxysmal vertigo, unspecified ear Referrals: Mark Faustin MD [Primary Care Provider] - 2 Days Additional Instructions: Drink a lot of fluids. Move your head slowly. Avoid any activity that may be dangerous if you developed some dizziness (climbing on ladders, driving, working around machinery etc. Take Meclizine 25mg every 6 hours as needed for dizziness. If you continue to have problems to follow up with Dr Faustin or return to the ED. Your white blood cell count is low. It has been low in the past. Watch for any fever or chills. Stay away from sick people. Follow-up with Dr faustin later this week for this. Condition: Stable Disposition: 01 HOME, SELF-CARE Decision to Admit: NO Date of Decison to Admit: 06/13/17 Decision Time: 08:47
[2017-06-13 08:17] LABS: MEAN CORPUSCULAR HEMOGLOBIN 31.1 pg (28.0-34.0); MEAN CORPUSCULAR VOLUME 88.6 fl (80.0-100.0)
[2017-06-13 08:22] LABS: eGFR (Non-African) > 60
[2017-06-13 09:24] VITALS: BP 106/56
[2017-06-13 09:26] LABS: EOSINOPHILS % 2 % (0-7); MONOCYTES % 8 % (0-11); SEGMENTED NEUTROPHILS % 57 % (39-79)
== END 2017-06-13 09:05 | disposition home or self-care (01) ==
LOC: ED 06:41
DX: D72.819 Decreased white blood cell count, unspecified (principal); H81.10 Benign paroxysmal vertigo, unspecified ear
CPT/HCPCS: 80053; 85025; J7030; 96360; 99284; S1016

== ENCOUNTER 2017-07-12 16:24 | Outpatient (CLI) | payer MEDICARE, OTHER ==
[2017-07-12 17:16] LABS: eGFR (African) > 60; eGFR (Non-African) > 60
--- NOTE | 2017-07-13 11:07 | Diagnostic Imaging Report ---
BETZAIDA FAULKNER [facility] [address] [facility] [address] [place], [place]. [address] Report Submission Date: July 12, 2017 5:03:16 PM CDT Patient Study Name: DAVION ROY Date: July 12, 2017 4:38:36 PM CDT Modality Type: CT\SR Gender: M Description: CT BRAIN W/O CONTRAST : 51 Institution: [facility] Physician: BETZAIDA FAULKNER Examination: CT head without contrast History: CT HEAD W/O CONTRAST, MENTAL STATUS CHANGES AND HEADACHES SINCE MONDAY , 07/09/17, VENTRICULOMEGALY NOTED ON PREVIOUS STUDY (Hx) Comparison exam: None available Technique: Noncontrast head CT protocol. Findings: Ventricles and sulci are prominent. Cerebrocerebellar parenchyma demonstrates periventricular low attenuation consistent with small vessel disease. No evidence for parenchymal hemorrhage. Bilateral cerebellar calcifications. No evidence for mass or mass effect. No midline shift. No extra axial fluid collections. Partial visualization of the paranasal sinuses, mastoid air cells, orbits, skull and scalp without gross irregularity. Impression: Age related changes. No acute parenchymal process. Ventricular dilation and cerebellar calcifications. No hemorrhage. Correlation with previous examinations recommended when become available. Electronically signed on July 12, 2017 5:03:16 PM CDT by: Percy ESCALERA
== END 2017-07-12 16:30 ==
LOC: LAB 16:24
PROVIDERS: ATTEND Family Medicine
DX: G93.89 Other specified disorders of brain (principal); E72.20 Disorder of urea cycle metabolism, unspecified; E87.6 Hypokalemia; B18.0 Chronic viral hepatitis B with delta-agent
CPT/HCPCS: 36415; 70450; 80053; 82140

== ENCOUNTER 2017-08-22 11:46 | Outpatient (CLI) | payer MEDICARE, OTHER ==
[2017-08-22 12:32] LABS: BASOPHILS % 0.5 (0.0-1.5); MEAN CORPUSCULAR HEMOGLOBIN 30.6 pg (28.0-34.0); MEAN CORPUSCULAR VOLUME 88.5 fl (80.0-100.0); MONOCYTES % 7.3 % (0.0-11.0); NEUTROPHILS # 1.6 # k/uL (1.4-7.7)
[2017-08-22 12:45] LABS: eGFR (African) > 60; eGFR (Non-African) > 60
== END 2017-08-22 11:48 ==
LOC: LAB 11:46
PROVIDERS: ATTEND Internal Medicine Gastroenterology
DX: K74.60 Unspecified cirrhosis of liver (principal)
CPT/HCPCS: 36415; 80053; 82105; 85025

== ENCOUNTER 2017-11-24 11:22 | Outpatient (CLI) | payer MEDICARE, OTHER ==
[2017-11-24 13:26] LABS: eGFR (Non-African) > 60
[2017-11-25 02:02] LABS: BASO % 0.7 % (0.0-1.5); EOS % 2.2 % (0.0-6.8); LYMPH ABS # 0.51 thou/uL (0.60-4.00); MCH. 29.8 pg (28.0-34.0); MCV 90.3 fL (80.0-100.0); MONOCYTE % 9.4 % (0.0-11.0); MONOCYTE ABS # 0.35 thou/uL (0.00-0.90)
== END 2017-11-24 11:24 ==
LOC: LAB 11:22
PROVIDERS: ATTEND Family Medicine
DX: R77.2 Abnormality of alphafetoprotein (principal); E88.09 Other disorders of plasma-protein metabolism, not elsewhere classified; D50.9 Iron deficiency anemia, unspecified
CPT/HCPCS: 36415; 80053; 82105; 85025

== ENCOUNTER 2018-02-26 11:07 | Outpatient (CLI) | payer MEDICARE, OTHER ==
[2018-02-26 11:28] LABS: MEAN CORPUSCULAR HEMOGLOBIN 30.9 pg (28.0-34.0)
[2018-02-26 11:29] LABS: BASOPHILS % 0.5 (0.0-1.5); EOSINOPHILS % 2.8 % (0.0-6.8); MONOCYTES % 7.9 % (0.0-11.0); NEUTROPHILS # 2.6 # k/uL (1.4-7.7)
[2018-02-26 11:40] LABS: eGFR (Non-African) > 60
== END 2018-02-26 11:10 ==
LOC: LAB 11:07
PROVIDERS: ATTEND Family Medicine
DX: D72.819 Decreased white blood cell count, unspecified (principal); Z79.899 Other long term (current) drug therapy; Z51.81 Encounter for therapeutic drug level monitoring
CPT/HCPCS: 36415; 80053; 85025

== ENCOUNTER 2018-04-18 14:42 | Outpatient (CLI) | payer MEDICARE, OTHER ==
[2018-04-18 15:10] LABS: MEAN CORPUSCULAR HEMOGLOBIN 31.2 pg (28.0-34.0)
[2018-04-18 15:11] LABS: BASOPHILS % 0.2 (0.0-1.5); EOSINOPHILS % 2.2 % (0.0-6.8); MONOCYTES % 5.3 % (0.0-11.0); NEUTROPHILS # 2.2 # k/uL (1.4-7.7)
[2018-04-18 15:46] LABS: eGFR (Non-African) > 60
== END 2018-04-18 14:44 ==
LOC: LAB 14:42
PROVIDERS: ATTEND Family Medicine
DX: Z51.81 Encounter for therapeutic drug level monitoring (principal)
CPT/HCPCS: 36415; 80053; 83735; 85025

== ENCOUNTER 2018-05-05 10:47 | Emergency (ER) | payer MEDICARE ==
--- NOTE | 2018-05-05 11:38 | ED Physician Documentation ---
General Adult - HISTORIAN Historian: patient - HPI Stated Complaint: Abdominal Pain, Diarrhea Chief Complaint: General Adult Onset: days ago (6) Timing: still present Severity: moderate Further Comments: yes (Pt is a 63 yo male with c/o diarrhea x 6 days. Pt has had watery bm's with no blood seen. Pain is in RLQ. Pt has not had any abd surgeries. Pt has PMHx significant for Hep B and cirrhosis, dx'd in . Pt has had chronic crampy and burning abd pain after eating, he says. Pt has had some lightheadedness. No fever.) - ROS CONST: other (lightheadedness) EYES/ENT: none CVS/RESP: none GI/: abdominal pain, diarrhea MS/SKIN/LYMPH: none - PAST HX Past History: other (HTN, esophageal varices, Hep B, Cirrhosis, Depression, OA, Melanoma, ) Surgeries/Procedures: other (parathyroidectomy, melanoma excision.) Allergies/Adverse Reactions: Allergies Allergy/AdvReac Type Severity Reaction Status Date / Time valproic acid Allergy Severe Nausea/Vomi Verified 06/13/17 06:57 ting ciprofloxacin [From Cipro] Allergy Intermediate Nausea/stomache Verified 06/13/17 06:57 upset ciprofloxacin HCl Allergy Intermediate Nausea/stomache Verified 06/13/17 06:57 [From Cipro] upset duloxetine Allergy Fatigue Verified 06/13/17 06:57 hydrocodone Allergy Itchy Skin Verified 06/13/17 06:57 aspirin AdvReac Intermediate Causes Verified 06/13/17 06:57 Internal Bleeding Home Medications: Ambulatory Orders Medication Instructions Recorded Amoxicillin/Potassium Clav 1 each PO BID #14 tablet 05/05/18 [Augmentin 875-125 Tablet] - SOCIAL HX Smoking History: non-smoker Alcohol Use: occasionally - FAMILY HX Family History: No - VITAL SIGNS Vital Signs: Vital Signs Temp Pulse Resp BP Pulse Ox 98.3 F 66 16 113/50 98 05/05/18 10:48 05/05/18 10:48 05/05/18 10:48 05/05/18 10:48 05/05/18 10:48 - REVIEWED ASSESSMENTS Nursing Assessment Reviewed: Yes Vitals Reviewed: Yes Progress - Progress Progress: LR 1 L IVF NS 1 L IVF improved. Rx Augmentin (875/125). Take one by mouth every 12 hours for 7 days. General Adult Physical Exam - PHYSICAL EXAM GENERAL APPEARANCE: mild distress EENT: pharynx normal NECK: normal inspection, supple RESPIRATORY: no resp distress, chest non-tender, breath sounds normal CVS: reg rate & rhythm, heart sounds normal ABDOMEN: soft, no organomegaly (diffuse abd tenderness, somewhat greater on R), normal bowel sounds, tenderness BACK: normal inspection, no CVA tenderness SKIN: warm/dry, normal color EXTREMITIES: non-tender, normal range of motion, no evidence of injury NEURO: oriented X3, motor nml, sensation nml Discharge Clincal Impression: gastroenteritis Prescriptions: Amoxicillin/Potassium Clav [Augmentin 875-125 Tablet] 1 each PO BID #14 tablet Referrals: Mark Flowers MD [Primary Care Provider] - 2 Days Condition: Stable Disposition: 01 HOME, SELF-CARE Decision to Admit: NO Decision Time: 15:00
[2018-05-05] MEDS ORDERED: LACTATED RINGERS 1,000 ML IV ONE (11:49)
[2018-05-05 12:00] LABS: eGFR (Non-African) > 60
[2018-05-05 13:02] LABS: EOSINOPHILS % 1.9 % (0.0-6.8); NEUTROPHILS # 2.4 # k/uL (1.4-7.7)
[2018-05-05 13:03] LABS: MEAN CORPUSCULAR HEMOGLOBIN 30.9 pg (28.0-34.0)
[2018-05-05 13:04] LABS: BASOPHILS % 0.5 (0.0-1.5); MONOCYTES % 4.6 % (0.0-11.0)
[2018-05-05 15:01] VITALS: BP 125/60
[2018-05-05 18:33] LABS: APPEARANCE,URINE CLEAR (CLEAR); COLOR,URINE YELLOW (YELLOW); OCCULT BLOOD,URINE NEGATIVE (NEGATIVE)
[2018-05-05 18:34] LABS: UROBILINOGEN URINE 0.2 Eu (0.2-1.0)
== END 2018-05-05 14:59 | disposition home or self-care (01) ==
LOC: ED 10:47
DX: K52.9 Noninfective gastroenteritis and colitis, unspecified (principal)
CPT/HCPCS: 36415; 80053; 81002; 83690; 85025; 87177; 87329; 87493; 96365; 99283; 99284; J7120; S1016

== ENCOUNTER 2018-05-22 16:40 | Emergency (ER) | payer MEDICARE ==
--- NOTE | 2018-05-22 16:58 | ED Physician Documentation ---
Fall - HISTORIAN Historian: patient - HPI Stated Complaint: fell at home -does not remember fall Chief Complaint: Fall Onset: just prior to arrival Where: home Context: other (not sure ) Associated Symptoms:: other (he is not sure if he had an LOC although he does not remember falling ) Location of Pain/Injury: head, face Injury to Right Extremity: none Injury to Left Extremity: none Further Comments: yes (He reports he was working outside and woke to being on side walk and he had blood on his face. He denies any new meds today. He did get up and walk into the house and notify his S.O. He denies any loss of control of bowel or bladder. He denies any pain other than on nose and above lip (left cheek).) - ROS CONST: no problems NEURO: anxiety. denies: dizziness MS/SKIN/LYMPH: denies: weakness, numbness, neck pain, back pain EYES/ENT: none CVS/RESP: none GI/: denies: problems urinating, nausea, vomiting - PAST HX Past History: hepatitis Immunizations: UTD Allergies/Adverse Reactions: Allergies Allergy/AdvReac Type Severity Reaction Status Date / Time valproic acid Allergy Severe Nausea/Vomi Verified 05/22/18 17:10 ting ciprofloxacin [From Cipro] Allergy Intermediate Nausea/stomache Verified 05/22/18 17:10 upset ciprofloxacin HCl Allergy Intermediate Nausea/stomache Verified 05/22/18 17:10 [From Cipro] upset duloxetine Allergy Fatigue Verified 05/22/18 17:10 hydrocodone Allergy Itchy Skin Verified 05/22/18 17:10 aspirin AdvReac Intermediate Causes Verified 05/22/18 17:10 Internal Bleeding - SOCIAL HX Smoking History: non-smoker Alcohol Use: sober Drug Use: none - FAMILY HX Family History: none - VITAL SIGNS Vital Signs: Vital Signs Temp Pulse Resp BP Pulse Ox 125/60 05/05/18 15:00 - REVIEWED ASSESSMENTS Nursing Assessment Reviewed: Yes Vitals Reviewed: Yes Progress - Progress Progress: 1800: discussed case with Dr Bain. Discussed findings with pt and he is agreeable DG 1815: Discussed case with Dr Flowers (PCP) He is aware of findings DG 1825: open area under lip and on top - no through the lip. DG ED Results Lab/Radiology - Radiology Radiology Impressions: CT Brain without Contrast History: FALL AND HIT FACE ON STEPS TODAY WHILE GARDENING. FACIAL CONTUSIONS AND SWELLING. Technique: Transaxial CT was performed without contrast from the skull base to the vertex. Findings: Scattered bilateral white matter hypodensity is present, consistent with gliosis. Mild cerebral atrophy is present. The lateral ventricles are again dilated out of degree of proportion of cerebral volume loss. There is dense calcification of the cerebellum again noted.. No hemorrhage or edema-producing mass. The fourth ventricle is midline. The paranasal sinuses are clear. No skull fracture. The mastoid air cells are well developed and well aerated. Impression: 1. Mild cerebral atrophy and white matter gliosis. 2. Ventriculomegaly, greater than expected for patient's degree of volume loss, correlation is recommended for normal pressure hydrocephalus. 3. No acute intracranial injury. Electronically signed on May 22, 2018 5:23:27 PM CDT by: Paulo Daley cervical spine without contrast. History: Fall with facial contusions . Technique: Transaxial computed tomographic images of the cervical spine were obtained without contrast according to standard protocol. Findings: The vertebral body heights are normal. No evidence of acute fracture. The odontoid process is intact. There is intervertebral disc space narrowing most significant at C6-C7 there is multilevel facet arthropathy present. Minimal degenerate anterolisthesis present at C5 and C6. No paravertebral soft tissue swelling present. The lung apices are clear. Impression: 1. No acute osseous injury. 2. Mild spondylosis. Electronically signed on May 22, 2018 5:42:35 PM CDT by: Paulo Noel CT facial bones without contrast History: Fall with facial contusion. Technique: Transaxial computed tomographic images of the facial bones were obtained without contrast according to standard protocol. Coronal and sagittal reformatted images were obtained as part of the examination. Findings: The calvarium is intact. There is no evidence of orbital fracture. The sinuses are intact. No nasal bone fracture is present. The nasal septum is midline. The bilateral zygomatic arches maxilla and mandible are without fracture. The globes are normal. Impression: 1. No evidence of facial fracture. Electronically signed on May 22, 2018 5:51:44 PM CDT by: Paulo Noel Fall Physical Exam - Physical Exam General Appearance: no acute distress, alert Head: non-tender Neck: non-tender, pain with neck movement ENT: nml external inspection (inside of upper lip small lac not through lip. ), no dental injury, airway nml Resp/CVS: chest non-tender, breath sounds nml, no resp. distress, heart sounds nml. 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 DO not drive for 24 hours 2. Monitor for any changes in mental status 3. See Dr Flowers after calling for follow up 4. Keflex 500 mg take 1 by mouth BID x 10 days 5. Triple antibiotic ointment on affected areas as directed (OTC) 6. Return to ER for any increasing concerns Condition: Stable Disposition: 01 HOME, SELF-CARE Decision to Admit: NO Date of Decison to Admit: 05/22/18 Decision Time: 18:28
[2018-05-22] MEDS: 0.9 % SODIUM CHLORIDE 1,000 ML IV ONE ×2 (17:15→18:03)
--- NOTE | 2018-05-22 17:23 | Diagnostic Imaging Report ---
CHIOL MCKEON [facility] [address] [facility] [address] [place], [place]. [address] Report Submission Date: May 22, 2018 5:23:27 PM CDT Patient Study Name: DAVION ROY Date: May 22, 2018 5:06:34 PM CDT Modality Type: CT Gender: M Description: CT BRAIN W/O CONTRAST : 51 Institution: [facility] Physician: CHILO MCKEON CT Brain without Contrast History: FALL AND HIT FACE ON STEPS TODAY WHILE GARDENING. FACIAL CONTUSIONS AND SWELLING. Technique: Transaxial CT was performed without contrast from the skull base to the vertex. Findings: Scattered bilateral white matter hypodensity is present, consistent with gliosis. Mild cerebral atrophy is present. The lateral ventricles are again dilated out of degree of proportion of cerebral volume loss. There is dense calcification of the cerebellum again noted.. No hemorrhage or edema-producing mass. The fourth ventricle is midline. The paranasal sinuses are clear. No skull fracture. The mastoid air cells are well developed and well aerated. Impression: 1. Mild cerebral atrophy and white matter gliosis. 2. Ventriculomegaly, greater than expected for patient's degree of volume loss, correlation is recommended for normal pressure hydrocephalus. 3. No acute intracranial injury. Electronically signed on May 22, 2018 5:23:27 PM CDT by: Paulo Noel [facility] CENTER[facility]aren
[2018-05-22] MEDS: ONDANSETRON HCL/PF 4 MG/ 2ML VIAL IVP ONE (17:25)
[2018-05-22 17:33] LABS: eGFR (Non-African) > 60
--- NOTE | 2018-05-22 17:44 | Diagnostic Imaging Report ---
CHILO MCKEON [facility] [address] [facility] [address] [place], [place]. [address] Report Submission Date: May 22, 2018 5:42:35 PM CDT Patient Study Name: DAVION ROY Date: May 22, 2018 5:06:34 PM CDT Modality Type: CT Gender: M Description: : 51 Institution: [facility] Physician: CHILO MCKEON CT cervical spine without contrast. History: Fall with facial contusions . Technique: Transaxial computed tomographic images of the cervical spine were obtained without contrast according to standard protocol. Findings: The vertebral body heights are normal. No evidence of acute fracture. The odontoid process is intact. There is intervertebral disc space narrowing most significant at C6-C7 there is multilevel facet arthropathy present. Minimal degenerate anterolisthesis present at C5 and C6. No paravertebral soft tissue swelling present. The lung apices are clear. Impression: 1. No acute osseous injury. 2. Mild spondylosis. Electronically signed on May 22, 2018 5:42:35 PM CDT by: Paulo Noel [facility]
--- NOTE | 2018-05-22 17:54 | Diagnostic Imaging Report ---
CHILO MCKEON [facility] [address] [facility] [address] [place], [place]. [address] Report Submission Date: May 22, 2018 5:51:44 PM CDT Patient Study Name: DAVION ROY Date: May 22, 2018 5:06:34 PM CDT Modality Type: CT Gender: M Description: E+1 FACIALS : 51 Institution: [facility] Physician: CHILO MCKEON CT facial bones without contrast History: Fall with facial contusion. Technique: Transaxial computed tomographic images of the facial bones were obtained without contrast according to standard protocol. Coronal and sagittal reformatted images were obtained as part of the examination. Findings: The calvarium is intact. There is no evidence of orbital fracture. The sinuses are intact. No nasal bone fracture is present. The nasal septum is midline. The bilateral zygomatic arches maxilla and mandible are without fracture. The globes are normal. Impression: 1. No evidence of facial fracture. Electronically signed on May 22, 2018 5:51:44 PM CDT by: Paulo Noel [facility] HE[facility] SERVICESDaren
[2018-05-22 17:58] LABS: EOSINOPHILS % 4 % (0-7); MONOCYTES % 10 % (0-11); SEGMENTED NEUTROPHILS % 60 % (39-79)
[2018-05-22] MEDS: MORPHINE SULFATE 10 MG/ML VIAL IV ONE (17:58)
[2018-05-22 17:59] LABS: PLT EST. EST. AGREES W/PLT CT
[2018-05-22] MEDS ORDERED: NEOMYCIN/BACITRACIN/POLYMYXINB OINT 15 GM TP ONE (18:22)
[2018-05-22 19:36] LABS: APPEARANCE,URINE CLEAR (CLEAR); COLOR,URINE YELLOW (YELLOW); OCCULT BLOOD,URINE NEGATIVE (NEGATIVE); UROBILINOGEN URINE 0.2 Eu (0.2-1.0)
[2018-05-22 19:37] LABS: CANNABINOIDS NEGATIVE ng/mL (< 50); METHYLENEDIOXYMETHAMPHETAMINE NEGATIVE ng/mL (<500)
== END 2018-05-22 18:44 | disposition home or self-care (01) ==
LOC: ED 16:40
DX: S01.511A Laceration without foreign body of lip, initial encounter (principal); S00.81XA Abrasion of other part of head, initial encounter; W19.XXXA Unspecified fall, initial encounter; Y93.89 Activity, other specified; Y92.008 Other place in unspecified non-institutional (private) residence as the place of occurrence of the external cause
CPT/HCPCS: 36415; 70450; 70486; 72125; 80053; 81002; 85025; 85610; 85730; 93005; 96374; 96375; 99284; 99285; G0480; G0481; J2270; J2405; J7030; 80320; 80377; S1016

== ENCOUNTER 2018-05-26 10:49 | Outpatient (CLI) | payer MEDICARE | END 2018-05-26 11:00 | LOC: LAB 10:49 | PROVIDERS: ATTEND Family Medicine | DX: A04.72 Enterocolitis due to Clostridium difficile, not specified as recurrent (principal) | CPT/HCPCS: 87493 ==

== ENCOUNTER 2018-06-01 11:35 | Outpatient (CLI) | payer MEDICARE ==
[2018-06-01 12:02] LABS: BASOPHILS % 1.1 % (0.0-1.5); EOSINOPHILS % 2.3 % (0.0-6.8); MEAN CORPUSCULAR HEMOGLOBIN 30.4 pg (28.0-34.0); MONOCYTES % 6.9 % (0.0-11.0); NEUTROPHILS # 2.7 # k/uL (1.4-7.7)
[2018-06-01 12:40] LABS: eGFR (Non-African) > 60
[2018-06-01 13:47] LABS: PLT EST. EST. AGREES W/PLT CT
== END 2018-06-01 11:45 ==
LOC: LAB 11:35
PROVIDERS: ATTEND Internal Medicine Gastroenterology
DX: K74.60 Unspecified cirrhosis of liver (principal)
CPT/HCPCS: 36415; 80053; 82105; 85025

== ENCOUNTER 2018-07-06 11:00 | Emergency (ER) | payer MEDICARE ==
--- NOTE | 2018-07-06 11:45 | ED Physician Documentation ---
Upper Extremity Injury - HISTORIAN Historian: patient - HPI Stated Complaint: s/p fall with shoulder and neck pain Chief Complaint: Upper Extremity Injury Additional Information: Patient presents to ED with left shoulder pain, 07/30, radiating down to left elbow and left neck after falling while walking the dog yesterday. He states he did not hit his head. He states he is under the care of a chiropractor for his neck and hip pain after falling about a month ago. Onset: yesterday Where: home Severity: mild Duration: persistent since Context: fall Associated Symptoms: denies: tingling, numbness distally, feeling loss Modifying Factors: pain on movement - ROS CONST: no problems CVS/RESP: none NEURO: none MS/SKIN/LYMPH: neck pain GI/: denies: nausea, vomiting - PAST HX Past History: Rt handed Allergies/Adverse Reactions: Allergies Allergy/AdvReac Type Severity Reaction Status Date / Time valproic acid Allergy Severe Nausea/Vomi Verified 05/22/18 17:10 ting ciprofloxacin [From Cipro] Allergy Intermediate Nausea/stomache Verified 05/22/18 17:10 upset ciprofloxacin HCl Allergy Intermediate Nausea/stomache Verified 05/22/18 17:10 [From Cipro] upset duloxetine Allergy Fatigue Verified 05/22/18 17:10 hydrocodone Allergy Itchy Skin Verified 05/22/18 17:10 aspirin AdvReac Intermediate Causes Verified 05/22/18 17:10 Internal Bleeding - SOCIAL HX Smoking History: non-smoker Alcohol Use: heavy Drug Use: none - FAMILY HX Family History: none - VITAL SIGNS Vital Signs: Vital Signs Temp Pulse Resp BP Pulse Ox 97.2 F L 66 16 103/49 97 07/06/18 11:26 07/06/18 11:26 07/06/18 11:26 07/06/18 11:26 07/06/18 11:26 - REVIEWED ASSESSMENTS Nursing Assessment Reviewed: Yes Vitals Reviewed: Yes ED Results Lab/Radiology - Radiology Radiology Impressions: Report Submission Date: July 06, 2018 12:11:14 PM CDT Patient Study Name: DAVION ROY Date: July 06, 2018 11:40:51 AM CDT Modality Type: DX Gender: M Description: SHOULDER 2 VIEWS OR MORE : 51 Institution: [facility] Physician: RAJESH OROZCO Examination: Plain film left shoulder History: PAIN IN LEFT SHOULDER AFTER FALL Comparison exams: None provided Findings: 3 views of the left shoulder demonstrates osteopenia. Mild articular degenerative changes. No evidence for fracture or dislocation. No soft tissue abnormality Impression: Osteopenia and mild degenerative changes. No acute cortical abnorma lity. Electronically signed on July 06, 2018 12:11:14 PM CDT by: Percy Orozco - Orders Orders: ED Orders Category Date Time Status SHOULDER 2 VIEWS OR MORE [RAD] Stat Exams 07/06/18 Taken Upper Extremity Injury Physic - Physical Exam General Appearance: no acute distress, alert Hand: normal inspection, non-tender, no evidence of injury Wrist: normal inspection, non-tender, no evidence of injury Elbow/Forearm: normal inspection, non-tender, no evidence of injury Shoulder: normal inspection, no evidence of injury, normal ROM, soft tissue tenderness (anterior shoulder over clavicle, bicepital groove ) Neuro/Vascular/Tendon: no vascular compromise, motor nml Skin: warm,dry Head/ENT: nml inspection. No: tenderness Neck/Back: nml inspection, non-tender, other (normal ROM) Resp/CVS: chest non-tender, breath sounds nml, heart sounds nml Abdomen: non-tender, pelvis stable. No: tenderness Discharge Clincal Impression: Left shoulder strain Qualifiers: Encounter type: initial encounter Qualified Code(s): S46.912A - Strain of unspecified muscle, fascia and tendon at shoulder and upper arm level, left arm, initial encounter Referrals: Mark Flowers MD [Primary Care Provider] - 2 Days Additional Instructions: 1. Tylenol and/or Ibuprofen as needed for pain 2. Apply ice/heat to affected area as needed for comfort 3. Do range of motion exercises and stay active 4. Follow up with PCP within 1 week 5. Return to ER for new or worsening symptoms Condition: Stable Disposition: 01 HOME, SELF-CARE Decision to Admit: NO Date of Decison to Admit: 07/06/18 Decision Time: 12:22 (])
[2018-07-06 12:51] VITALS: BP 112/55
--- NOTE | 2018-07-06 22:06 | Diagnostic Imaging Report ---
RAJESH OROZCO [facility] [address] [facility] [address] Report Submission Date: July 06, 2018 12:11:14 PM CDT Patient Study Name: DAVION ROY Date: July 06, 2018 11:40:51 AM CDT Modality Type: DX Gender: M Description: SHOULDER 2 VIEWS OR MORE : 51 Institution: [facility] Physician: RAJESH OROZCO Examination: Plain film left shoulder History: PAIN IN LEFT SHOULDER AFTER FALL Comparison exams: None provided Findings: 3 views of the left shoulder demonstrates osteopenia. Mild articular degenerative changes. No evidence for fracture or dislocation. No soft tissue abnormality Impression: Osteopenia and mild degenerative changes. No acute cortical abnormality. Electronically signed on July 06, 2018 12:11:14 PM CDT by: Percy ESCALERA
== END 2018-07-06 12:30 | disposition home or self-care (01) ==
LOC: ED 11:00
DX: S46.912A Strain of unspecified muscle, fascia and tendon at shoulder and upper arm level, left arm, initial encounter (principal); W01.0XXA Fall on same level from slipping, tripping and stumbling without subsequent striking against object, initial encounter; Y93.K1 Activity, walking an animal; Y92.009 Unspecified place in unspecified non-institutional (private) residence as the place of occurrence of the external cause
CPT/HCPCS: 73030; 99282; 99283